=== PATIENT | female | born 1945 | race Caucasian/White ===

== ENCOUNTER 2021-07-08 07:16 | Inpatient (IN) | payer OTHER, MEDICARE ==
[2021-07-08 09:00] LABS: Urine Blood Negative (Negative); Urine Glucose Negative (Negative); Urine Protein Negative (Negative); Urine Specific Gravity 1.015 (1.005-1.030)
[2021-07-08 09:02] LABS: Absolute Lymphocytes (CBC) 0.5 K/uL (0.7-4.9); Basophils % 0.4 % (0-1.3); Hematocrit 30.3 % (36.0-45.0); MPV 6.9 fL (7.6-11.3); RBC Red Blood Cell Count 2.89 M/uL (3.86-4.86)
[2021-07-08 09:06] LABS: Protime INR 1.31
[2021-07-08 09:32] LABS: Urine RBC <5 /HPF (NONE SEEN)
[2021-07-08 09:33] LABS: Urine Bacteria <20 /HPF (<20)
[2021-07-08 09:36] LABS: ALT/SGPT 15 U/L (12-78); AST/SGOT 27 U/L (15-37); Alkaline Phosphatase 63 U/L (45-117); BUN Blood Urea Nitrogen 10 mg/dL (7-18); Bicarbonate 22 mmol/L (21-32); Bilirubin Direct 0.2 mg/dL (0-0.2); Bilirubin Total 0.5 mg/dL (0.2-1.0); Ferritin 281.1 ng/mL (8-388); Glucose Level 118 mg/dL (74-106); Lipase 19 U/L (73-393); Protein, Total 5.5 g/dL (6.4-8.2); Sodium Level 135 mmol/L (136-145); Troponin (Emerg Dept Use Only) < 0.02 ng/mL (0.0-0.045)
--- NOTE | 2021-07-08 09:49 | RAD REPORT ---
EXAM DESCRIPTION: RAD - Chest Single View - 07/08/2021 9:42 am CLINICAL HISTORY: SOB Chest pain. COMPARISON: Chest Pa And Lat (2 Views) dated 03/29/2016 FINDINGS: Portable technique limits examination quality. Moderate interstitial lung opacities are present, significantly greater on the right. This is suspici ous for infection/viral pneumonitis. The heart is normal in size. No displaced fractures.
--- NOTE | 2021-07-08 10:46 | ER ---
Nurse's Notes [facility] Name: Sangita Bunn Age: 75 yrs Sex: Female : 1945 Arrival Date: 07/08/2021 Time: 07:18 Bed 14 Private MD: Diagnosis: Pneumonia, unspecified organism;Hypoxia Presentation: 07/08 07:23 Chief complaint: Patient's son or daughter states: about 3 days ago she started with vg1 SOB, coughing. we went to [facility] for covid test. it was negative. she is an [facility] pt. 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 she had Covid in October this year and her O2 has stayed from 90% to 96%. No oxygen use at home. Coronavirus screen: At this time, the client does not indicate any symptoms associated with coronavirus-19. Ebola Screen: Patient denies travel to an Ebola-affected area in the 21 days before illness onset. Initial Sepsis Screen: Does the patient meet any 2 criteria? RR > 20 per min. HR > 90 bpm. Does the patient have a suspected source of infection? Yes: Productive cough/pneumonia. Risk Assessment: Do you want to hurt yourself or someone else? Patient reports no desire to harm self or others. Onset of symptoms was July 08, 2021. 07:23 Method Of Arrival: Wheelchair vg1 07:23 Acuity: KRISTINA 2 vg1 Triage Assessment: 07:31 General: Appears in no apparent distress. slender, well groomed, Behavior is calm, vg1 cooperative, appropriate for age. Pain: Denies pain. Respiratory: Reports shortness of breath at rest on exertion cough that is Onset: The symptoms/episode began/occurred 36 hours ago, the patient has severe shortness of breath. Historical: - Allergies: 07:27 Morphine; vg1 07:27 Codeine; vg1 - Home Meds: 07:28 levothyroxine 75 mcg tab 1 tab once daily [Active]; cabozantinib 10 mg once a day, vg1 every other day oral [Active]; Lexapro 10 mg Oral tab 1 tab once daily [Active]; sodium [Active]; tramadol 50 mg Oral tab 1 tab every 6 hours [Active]; melatonin Oral [Active]; CBD oil, 4 drops twice a day, taken orally for appetite stimulant [Active]; - PMHx: 07:27 Lung tumors; vg1 07:28 Hypothyroidism; vg1 - PSHx: 07:27 Left kidney removed; Appendectomy; vg1 - Immunization history:: Client reports having NOT received the Covid vaccine. - Social history:: Smoking status: Patient denies any tobacco usage or history of. Screenin:42 Abuse screen: Denies threats or abuse. Nutritional screening: No deficits noted. tw2 Tuberculosis screening: No symptoms or risk factors identified. Fall Risk None identified. Assessment: 07:46 General: Appears ill, slender, Behavior is calm, cooperative, appropriate for age. es2 Pain: Denies pain. Neuro: Level of Consciousness is awake, alert, obeys commands, Oriented to person, place, time, situation, Appropriate for age Speech is normal. Cardiovascular: Rhythm is sinus rhythm. Respiratory: Airway is patent Respiratory effort is even, Respiratory pattern is regular. GI: No signs and/or symptoms were reported involving the gastrointestinal system. : No signs and/or symptoms were reported regarding the genitourinary system. EENT: No signs and/or symptoms were reported regarding the EENT system. Derm: No signs and/or symptoms reported regarding the dermatologic system. Musculoskeletal: No signs and/or symptoms reported regarding the musculoskeletal system. Vital Signs: 07:23 BP 122 / 80; Pulse 103; Resp 20; Temp 97.9(TE); Weight 47.17 kg (R); Height 5 ft. 2 in. vg1 (157.48 cm); 07:23 Pulse Ox 85% on R/A; tw2 07:48 BP 137 / 72; Pulse 91; Resp 17; Pulse Ox 94% on 2 lpm NC; es2 09:56 BP 107 / 65; Pulse 84; Resp 18; Pulse Ox 92% on 2 lpm NC; es2 14:29 BP 112 / 59; Pulse 84; Resp 21; Pulse Ox 96% 3 lpm ; Pain 0/10; ch5 07:23 Body Mass Index 19.02 (47.17 kg, 157.48 cm) vg1 07:23 pt placed on 3L nc. o2 94%. provider notified. tw2 ED Course: 07:18 Patient arrived in ED. rg4 07:26 Mitchell Allen MD is Attending Physician. rn 07:27 Triage completed. vg1 07:28 Arm band placed on. vg1 07:29 Kian Stein NP is PHCP. pm1 07:31 Bed in low position. Call light in reach. Adult w/ patient. pt placed on 3L nc. tw2 07:32 Lily Hernandez, RN is Primary Nurse. es2 07:49 No provider procedures requiring assistance completed. es2 08:45 Blood Culture Sent. es2 08:45 Basic Metabolic Panel Sent. es2 08:45 BMP Sent. es2 08:45 Blood Culture Adult (2) Sent. es2 08:45 C-Reactive Protein Sent. es2 08:45 CBC with Diff Sent. es2 08:45 Ferritin Sent. es2 08:45 Flu Sent. es2 08:45 LFT's Sent. es2 08:45 Lactate Sent. es2 08:45 Lipase Sent. es2 08:45 PT-INR Sent. es2 08:45 Procalcitonin Sent. es2 08:45 Ptt, Activated Sent. es2 08:45 Strep Sent. es2 08:45 Urine Microscopic Only Sent. es2 08:45 Troponin (emerg Dept Use Only) Sent. es2 09:42 CXR XRAY In Process Unspecified. EDMS 10:45 Gil Loo MD is Hospitalizing Provider. pm1 Administered Medications: 11:02 Drug: Rocephin (cefTRIAXone) 1 grams Route: IV; Rate: calculated rate; Site: right es2 forearm; 11:02 Follow up: Response: No adverse reaction; IV Status: Completed infusion es2 11:02 Drug: AZITHromycin 500 mg Route: IVPB; Infused Over: 1 hrs; Site: right forearm; es2 12:43 Follow up: Response: No adverse reaction; IV Status: Completed infusion es2 14:01 Drug: traMADol 50 mg Route: PO; ch5 Outcome: 10:46 Decision to Hospitalize by Provider. pm1 14:49 Patient left the ED. es2 Signatures: Dispatcher [employer] EDMS Mitchell Allen MD MD rn Marinas, Patrick, ROWAN FIELD ADMINISTRATOR pm1 Tatiana Barrientos RN RN tw2 Oxana Dahl 4 Charmaine Dahl RN RN 1 John Blandon RN RN ch5 Lily Hernandez RN RN es2 Corrections: (The following items were deleted from the chart) : 08:45 CORONAVIRUS+MRJEANNEBRZ drawn and sent. es2 EDMS
--- NOTE | 2021-07-08 10:46 | EDPHYS ---
Physician Documentation [facility] Name: Sangita Bunn Age: 75 yrs Sex: Female : 1945 Arrival Date: 07/08/2021 Time: 07:18 Bed 14 Private MD: ED Physician Mitchell Allen HPI: 07/08 07:20 This 75 yrs old Female presents to ER via Wheelchair with complaints of pm1 Breathing Difficulty, Shortness Of Breath. 07:20 The patient has shortness of breath at rest. Onset: The symptoms/episode began/occurred pm1 3 day(s) ago. Duration: The symptoms are continuous, and are steadily getting worse. The patient's shortness of breath is aggravated by light activity, talking, is alleviated by application of supplemental oxygen, in the ER. Associated signs and symptoms: Pertinent positives: productive cough, Pertinent negatives: chest pain, fever, nausea, vomiting, Diarrhea. Severity of symptoms: in the emergency department the symptoms have resolved With oxygen given in the ER, patient does not use home oxygen. The patient has not experienced similar symptoms in the past. The patient has been recently seen by a physician: an oncologist, with different complaint(s). Historical: - Allergies: 07:27 Morphine; vg1 07:27 Codeine; vg1 - Home Meds: 07:28 levothyroxine 75 mcg tab 1 tab once daily [Active]; cabozantinib 10 mg once a day, vg1 every other day oral [Active]; Lexapro 10 mg Oral tab 1 tab once daily [Active]; sodium [Active]; tramadol 50 mg Oral tab 1 tab every 6 hours [Active]; melatonin Oral [Active]; CBD oil, 4 drops twice a day, taken orally for appetite stimulant [Active]; - PMHx: 07:27 Lung tumors; vg1 07:28 Hypothyroidism; vg1 - PSHx: 07:27 Left kidney removed; Appendectomy; vg1 - Immunization history:: Client reports having NOT received the Covid vaccine. - Social history:: Smoking status: Patient denies any tobacco usage or history of. ROS: 07:20 Constitutional: Negative for fever, chills, and weight loss, Cardiovascular: Negative pm1 for chest pain, palpitations, and edema. 07:20 Abdomen/GI: Negative for abdominal pain, nausea, vomiting, diarrhea, and constipation, Back: Negative for injury and pain, MS/Extremity: Negative for injury and deformity, Skin: Negative for injury, rash, and discoloration. 07:20 Neuro: Negative for headache, weakness, numbness, tingling, and seizure. 07:20 Respiratory: Positive for cough, shortness of breath. 07:20 All other systems are negative. Exam: 07:20 Constitutional: This is a well developed, well nourished patient who is awake, alert, pm1 and in no acute distress. Head/Face: Normocephalic, atraumatic. 07:20 Back: No spinal tenderness. No costovertebral tenderness. Full range of motion. Skin: Warm, dry with normal turgor. Normal color with no rashes, no lesions, and no evidence of cellulitis. MS/ Extremity: Pulses equal, no cyanosis. Neurovascular intact. Full, normal range of motion. 07:20 Cardiovascular: Exam negative for acute changes, Rate: normal, Rhythm: regular, Pulses: no pulse deficits are appreciated, Edema: is not appreciated. 07:20 Respiratory: mild respiratory distress is noted, Respirations: no acute changes, Breath sounds: decreased breath sounds, that are mild, are located in both bases. 07:20 Abdomen/GI: Exam negative for acute changes, Inspection: abdomen appears normal, Palpation: abdomen is soft and non-tender, in all quadrants. 07:20 Neuro: Exam negative for acute changes, Orientation: is normal, Motor: is normal, moves all fours. Vital Signs: 07:23 BP 122 / 80; Pulse 103; Resp 20; Temp 97.9(TE); Weight 47.17 kg (R); Height 5 ft. 2 in. vg1 (157.48 cm); 07:23 Pulse Ox 85% on R/A; tw2 07:48 BP 137 / 72; Pulse 91; Resp 17; Pulse Ox 94% on 2 lpm NC; es2 09:56 BP 107 / 65; Pulse 84; Resp 18; Pulse Ox 92% on 2 lpm NC; es2 14:29 BP 112 / 59; Pulse 84; Resp 21; Pulse Ox 96% 3 lpm ; Pain 0/10; ch5 07:23 Body Mass Index 19.02 (47.17 kg, 157.48 cm) vg1 07:23 pt placed on 3L nc. o2 94%. provider notified. tw2 MDM: 08:13 Patient medically screened. pm1 10:44 Data reviewed: vital signs. pm1 10:44 Counseling: I had a detailed discussion with the patient and/or guardian regarding: the pm1 historical points, exam findings, and any diagnostic results supporting the discharge/admit diagnosis, lab results, radiology results, the need for further work-up and treatment in the hospital. 07/08 07:45 Order name: BMP pm1 07/08 07:45 Order name: Blood Culture Adult (2) pm1 07/08 07:45 Order name: C-Reactive Protein; Complete Time: 09:49 pm1 07/08 07:45 Order name: CBC with Diff; Complete Time: 09:49 pm1 07/08 07:45 Order name: Ferritin; Complete Time: 09:49 pm1 07/08 07:45 Order name: Flu; Complete Time: 10:40 pm1 07/08 07:45 Order name: LFT's; Complete Time: 09:49 pm1 07/08 07:45 Order name: Lactate; Complete Time: 09:49 pm1 07/08 07:45 Order name: Lipase; Complete Time: 09:49 pm1 07/08 07:45 Order name: PT-INR; Complete Time: 09:49 pm1 07/08 07:45 Order name: Procalcitonin; Complete Time: 10:40 pm1 07/08 07:45 Order name: Ptt, Activated; Complete Time: 09:49 pm1 07/08 07:45 Order name: Strep; Complete Time: 09:49 pm1 07/08 07:45 Order name: Troponin (emerg Dept Use Only); Complete Time: 09:49 pm1 07/08 07:45 Order name: Urine Microscopic Only; Complete Time: 09:49 pm1 07/08 07:45 Order name: CXR XRAY; Complete Time: 09:49 pm1 07/08 07:45 Order name: EKG; Complete Time: 07:47 pm1 07/08 07:46 Order name: Basic Metabolic Panel; Complete Time: 09:49 EDMS 07/08 07:46 Order name: Blood Culture EDMS 07/08 09:00 Order name: Urine Dipstick-Ancillary; Complete Time: 09:49 EDMS 07/08 09:21 Order name: SARS-COV-2 RT PCR; Complete Time: 10:40 EDMS 07/08 09:34 Order name: Urine Culture EDMS 07/08 09:39 Order name: Throat Culture EDMS 07/08 10:47 Order name: CT Chest Wo Con pm1 07/08 11:30 Order name: Procalcitonin EDMS 07/08 12:01 Order name: CT; Complete Time: 12:08 EDMS 07/08 07:45 Order name: Cardiac monitoring; Complete Time: 08:02 pm1 07/08 07:45 Order name: Droplet/Contact Precautions; Complete Time: 08:45 pm1 07/08 07:45 Order name: EKG - Nurse/Tech; Complete Time: 08:45 pm1 07/08 07:45 Order name: IV Start; Complete Time: 08:45 pm1 07/08 07:45 Order name: Labs collected and sent; Complete Time: 08:45 pm1 07/08 07:45 Order name: O2 Per Protocol; Complete Time: 08:02 pm1 07/08 07:45 Order name: O2 Sat Monitoring; Complete Time: 08:02 pm1 07/08 07:45 Order name: Urine Dipstick-Ancillary (obtain specimen) pm1 07/08 11:30 Order name: Heart Healthy; Complete Time: 13:51 EDMS Administered Medications: 11:02 Drug: Rocephin (cefTRIAXone) 1 grams Route: IV; Rate: calculated rate; Site: right es2 forearm; 11:02 Follow up: Response: No adverse reaction; IV Status: Completed infusion es2 11:02 Drug: AZITHromycin 500 mg Route: IVPB; Infused Over: 1 hrs; Site: right forearm; es2 12:43 Follow up: Response: No adverse reaction; IV Status: Completed infusion es2 14:01 Drug: traMADol 50 mg Route: PO; ch5 Disposition: 17:55 Co-signature as Attending Physician, Mitchell Allen MD I agree with the assessment and rn plan of care. Attestation: The patient's history, exam findings, diagnostics, and a summary of any interventions or procedures was reviewed in detail with Kian Stein NP. Disposition Summary: 07/08/21 10:46 Hospitalization Ordered Hospitalization Status: Inpatient Admission pm1 Provider: Gil Loo Location: Telemetry/MedSurg (Inpatient) pm1 Condition: Stable pm1 Problem: new pm1 Symptoms: have improved pm1 Bed/Room Type: Standard pm1 Room Assignment: 202(07/08/21 13:43) Diagnosis - Pneumonia, unspecified organism pm1 - Hypoxia pm1 Forms: - Medication Reconciliation Form pm1 - SBAR form pm1 Signatures: Dispatcher [employer] EDNH Reyna Elias RN RN dw Mitchell Allen MD MD rn Marinas, Patrick, LOAN ASSISTANT LOAN ASSISTANT pm1 Charmaine Dahl RN RN 1 John Blandon RN RN ch5 Lily Hernandez RN RN es2 Corrections: (The following items were deleted from the chart) 07:46 CORONAVIRUS+BRZ ordered. [facility] EDNH 13:43 10:46 pm1 dw
[2021-07-08] MEDS ORDERED: AZITHROMYCIN 500 MG INJ IVPB ONE (11:14)
[2021-07-08] MEDS ORDERED: CEFTRIAXONE 1000 MG/VIAL ONE (11:14)
[2021-07-08] MEDS ORDERED: NA CHLORIDE 0.9% 250 ML ONE (11:14)
[2021-07-08] MEDS ORDERED: ACETAMINOPHEN 500 MG TAB PO PRN (11:27)
[2021-07-08] MEDS ORDERED: ONDANSETRON 4 MG/2 ML VIAL IV PRN (11:27)
--- NOTE | 2021-07-08 11:33 | P.HP ---
Certification for Inpatient Patient admitted to: Inpatient With expected LOS: >2 Midnights Patient will require the following post-hospital care: None Practitioner: I am a practitioner with admitting privileges, knowledge of patient current condition, hospital course, and medical plan of care. 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 Her shortness of breath started 3 days ago and she gait get a COVID-19 test which was negative. Her respiratory status continued to worse. At home her O2 sats went down to 90%. They brought her into the emergency room for further evaluation. Her oxygen saturations in the emergency room improved with 3 L of oxygen and she is feeling much better. Chest x-ray does show right lung opacity with also left lower lobe lung capacity. CT scan of the chest is pending at this time. Patient is new onset hypoxemia and will be admitted for inpatient hospitalization for bacterial pneumonia. Patient is immunocompromised with her malignancy diagnosis. - Past Medical/Surgical History -: Renal cell cancer -: Lung metastasis - Family History Father Family History: Reviewed- Non-Contributory - Social History Smoking Status: Never smoker Alcohol use: No CD- Drugs: No Review of Systems 10-point ROS is otherwise unremarkable Physical Examination - Vital Signs Temperature: 99 F Blood Pressure: 120/70 Pulse: 100 Respirations: 24 Pulse Ox (%): 90 - Physical Exam General: Alert, In no apparent distress HEENT: Atraumatic, PERRLA, Mucous membr. moist/pink, EOMI, Sclerae nonicteric Neck: Supple, 2+ carotid pulse no bruit, No LAD, Without JVD or thyroid abnormality Respiratory: Clear to auscultation bilaterally, Normal air movement Cardiovascular: Regular rate/rhythm, Normal S1 S2 Gastrointestinal: Normal bowel sounds, No tenderness Musculoskeletal: No tenderness Integumentary: No rashes Neurological: Normal gait, Normal speech, Normal strength at 5/5 x4 extr, Normal tone, Normal affect Lymphatics: No axilla or inguinal lymphadenopathy - Studies Laboratory Data (last 24 hrs) 07/08/21 08:28: PT 15.1 H, INR 1.31, APTT 30.8 07/08/21 08:28: WBC 5.60, Hgb 11.0 L, Hct 30.3 L, Plt Count 351 07/08/21 08:28: Sodium 135 L, Potassium 4.0, BUN 10, Creatinine 0.81, Glucose 118 H, Total Bilirubin 0.5, AST 27, ALT 15, Alkaline Phosphatase 63, Lipase 19 L Microbiology Data (last 24 hrs): 07/08/21 07:45 Nasopharnyx Influenza Type A Antigen Screen - Final 07/08/21 07:45 Nasopharnyx Influenza Type B Antigen Screen - Final 07/08/21 08:30 Throat Group A Streptococcus Rapid Screen - Final Assessment & Plan - Problems (Diagnosis) (1) Bacterial pneumonia Current Visit: Yes Status: Acute (2) Hypoxemia Current Visit: Yes Status: Acute (3) Metastatic renal cell carcinoma to lung Current Visit: Yes Status: Acute - Plan 1. Continue with IV antibiotics 2. Awaiting sputum and blood culture 3. Repeat chest x-ray in a.m. 4. Will proceed with CT scan of the chest 5. May get pulmonary consultation 6. Continue with nebs as needed 7. O2 per protocol 8. Continue with gentle hydration 9. Repeat labs including CBC and renal function in a.m. 10. GI and DVT prophylaxis - Advance Directives Does patient have a Living Will: No Does patient have a Durable POA for Healthcare: No
--- NOTE | 2021-07-08 12:01 | RAD REPORT ---
EXAM DESCRIPTION: CT - Thorax Wo Con CLINICAL HISTORY: Chest pain pneumonia, lung ca COMPARISON: Thorax Wo Con dated 04/30/2016 FINDINGS: Small bilateral pleural effusions are seen. Multiple soft tissue masses are present in the mediastinum compatible with metastatic lymphadenopathy. The adenopathy appears to extend superiorly to involve the base of the neck bilaterally. There is likely a right hilar mass present although full assessment is quite limited by lack contrast. Mild atelectasis is seen involving the right middle lo be. No pneumothorax. Asymmetric interstitial lung opacities are present greatest in the upper lobes particularly on the ri ght suspicious for a superimposed pulmonary infection/pneumonia. Several low-density hepatic lesions are present, likely cysts. No lytic or blastic bone lesions. All CT scans are performed using dose optimization technique as appropriate and may include automated exposure control or mA/KV adjustment according to patient size. IMPRESSION: Multiple soft tissue masses are seen in mediastinum compatible with significant adenopat hy. The adenopathy is seen to extend superiorly to the base of the neck bilaterally. Presumed right h ilar mass is present with atelectasis involving the right middle lobe.Complete assessment is limited due to lack of intravenous contrast material Airspace infiltrate is present in both upper lobes, greater on the right likely infection/pneumonia. Small bilateral pleural effusions.
[2021-07-08 12:10] VITALS: BMI 19.0
[2021-07-08] MEDS: ENOXAPARIN 40 MG/0.4 ML SQ SCH (12:30)
[2021-07-08] MEDS ORDERED: ENOXAPARIN 40 MG/0.4 ML SQ ONE (12:38)
[2021-07-08] MEDS ORDERED: NA CHLORIDE 0.9% 1,000 ML ONE (12:39)
[2021-07-08] MEDS: NA CHLORIDE 0.9% 1,000 ML IV SCH (12:42)
[2021-07-08] MEDS: ALBUTEROL 2.5 MG/3 ML NEB SOL NEB SCH ×3 (13:10→19:29)
[2021-07-08] MEDS: IPRATROPIUM BROM 0.5MG/2.5ML NEB SCH ×3 (13:10→19:29)
[2021-07-08] MEDS ORDERED: IPRATROPIUM BROM 0.5MG/2.5ML ONE (13:21)
[2021-07-08] MEDS ORDERED: ALBUTEROL 2.5 MG/3 ML NEB SOL ONE (13:21)
[2021-07-08] MEDS ORDERED: TRAMADOL HCL 50 MG TAB ONE (14:19)
[2021-07-08] MEDS ORDERED: TRAMADOL HCL 50 MG TAB PO PRN (20:00)
[2021-07-08] MEDS: ESCITALOPRAM 20 MG TAB PO SCH (20:13)
[2021-07-08] MEDS: guaiFENesin 100 MG/5 ML UCUP PO PRN (20:13)
[2021-07-08] MEDS: BENZONATATE 100 MG CAP PO PRN (23:13)
[2021-07-08] MEDS: MELATONIN 5 MG TABLET PO PRN (23:34)
[2021-07-09] MEDS: IPRATROPIUM BROM 0.5MG/2.5ML NEB SCH ×4 (02:05→20:00)
[2021-07-09] MEDS: ALBUTEROL 2.5 MG/3 ML NEB SOL NEB SCH ×4 (02:05→20:00)
[2021-07-09] MEDS: LEVOTHYROXINE SOD 0.075 MG TAB PO SCH (06:47)
[2021-07-09] MEDS: BENZONATATE 100 MG CAP PO PRN (06:49)
[2021-07-09 06:52] LABS: Absolute Lymphocytes (CBC) 0.7 K/uL (0.7-4.9); Basophils % 0.6 % (0-1.3); Hematocrit 29.4 % (36.0-45.0); MPV 6.5 fL (7.6-11.3); RBC Red Blood Cell Count 2.93 M/uL (3.86-4.86)
[2021-07-09 07:05] LABS: Albumin 1.7 g/dL (3.4-5.0); Bilirubin Total 0.4 mg/dL (0.2-1.0); Potassium 3.9 mmol/L (3.5-5.1); Protein, Total 5.1 g/dL (6.4-8.2)
[2021-07-09] MEDS: ENOXAPARIN 40 MG/0.4 ML SQ SCH (08:54)
[2021-07-09] MEDS: guaiFENesin 100 MG/5 ML UCUP PO PRN (08:54)
[2021-07-09] MEDS ORDERED: HYDROCODONE/CHLORPHEN 5 ML/OSYR PO PRN (10:35)
[2021-07-09] MEDS ORDERED: METHYLPREDNISOLONE 125 MG INJ IV ONE (11:00)
[2021-07-09] MEDS ORDERED: Levofloxacin500mg IV 500 MG/100 ML BAG IV SCH (11:00)
[2021-07-09] MEDS ORDERED: PIPER TAZO 3.375 GM in NA CHLORIDE 0.9% 100 ML IV SCH ×4 (12:00)
[2021-07-09] MEDS: PIPER TAZO 3.375 GM in NA CHLORIDE 0.9% 100 ML IV SCH (18:26)
[2021-07-09] MEDS: METHYLPREDNISOLONE 40 MG INJ IV SCH (18:29)
[2021-07-09] MEDS: ESCITALOPRAM 20 MG TAB PO SCH ×2 (20:48→21:00)
[2021-07-09] MEDS: NA CHLORIDE 0.9% 1,000 ML IV SCH (20:48)
[2021-07-10] MEDS: METHYLPREDNISOLONE 40 MG INJ IV SCH (01:00)
[2021-07-10] MEDS: PIPER TAZO 3.375 GM in NA CHLORIDE 0.9% 100 ML IV SCH (01:09)
--- NOTE | 2021-07-10 01:41 | P.PN ---
Subjective Date of Service: 07/09/21 Patient's clinical symptoms are improved. Patient is not coughing as much. Procalcitonin was negative. Most likely viral pneumonia. Continue with IV steroids. Pulmonary consultation in a.m. along with repeat chest x-ray Review of Systems 10-point ROS is otherwise unremarkable Physical Examination - Vital Signs Temperature: 99 F Blood Pressure: 120/70 Pulse: 100 Respirations: 24 Pulse Ox (%): 90 - Physical Exam General: Alert, In no apparent distress, Oriented x3 Respiratory: Diminished, Crackles/rales, Expiratory wheezes Cardiovascular: Regular rate/rhythm, Normal S1 S2, No murmurs Gastrointestinal: Normal bowel sounds, Soft and benign, Non-distended, No tenderness Musculoskeletal: No clubbing, No swelling, No tenderness Neurological: Normal strength at 5/5 x4 extr, Sensation intact, Cranial nerves 3-12 intact - Studies Medications List Reviewed: Yes Assessment & Plan - Problems (Diagnosis) (1) Bacterial pneumonia Current Visit: Yes Status: Acute (2) Hypoxemia Current Visit: Yes Status: Acute (3) Metastatic renal cell carcinoma to lung Current Visit: Yes Status: Acute - Plan Continue with plan of care as mentioned below: 1. Continue with IV antibiotics and IV steroids 2. Awaiting culture results 3. Repeat chest x-ray in a.m. 4. CT scan reveals bilateral upper lobe infiltrates 5. May get pulmonary consultation 6. Continue with nebs as needed 7. O2 per protocol 8. Hep-Lock IV 9. Repeat labs including CBC and renal function in a.m. 10. GI and DVT prophylaxis Discharge Plan: Home Plan to discharge in: Greater than 2 days - Advance Directives Does patient have a Living Will: No Does patient have a Durable POA for Healthcare: No - Code Status/Comfort Care Code Status Assessed: Yes Code Status: Full Code Critical Care: No Time Spent Managing PTS Care (In Minutes): 35
[2021-07-10] MEDS: IPRATROPIUM BROM 0.5MG/2.5ML NEB SCH ×4 (02:00→20:00)
[2021-07-10] MEDS: ALBUTEROL 2.5 MG/3 ML NEB SOL NEB SCH ×2 (02:00→08:12)
[2021-07-10] MEDS: LEVOTHYROXINE SOD 0.075 MG TAB PO SCH (05:15)
[2021-07-10] MEDS ORDERED: LEVOTHYROXINE SOD 0.075 MG TAB PO SCH (06:30)
[2021-07-10 06:36] LABS: Absolute Lymphocytes (CBC) 0.1 K/uL (0.7-4.9); Basophils % 0.2 % (0-1.3); Hematocrit 30.8 % (36.0-45.0); Lymphocytes % 2.5 % (15.3-44.8); MPV 6.6 fL (7.6-11.3); RBC Red Blood Cell Count 2.91 M/uL (3.86-4.86)
[2021-07-10 06:52] LABS: Magnesium 2.2 mg/dL (1.8-2.4); Potassium 3.7 mmol/L (3.5-5.1)
--- NOTE | 2021-07-10 07:25 | RAD REPORT ---
EXAM DESCRIPTION: RAD - Chest Single View - 07/10/2021 7:02 am CLINICAL HISTORY: pneumonia COMPARISON: CT chest July 08, AP chest July 08 TECHNIQUE: AP portable chest image was obtained 07/10/2021 7:02 am . FINDINGS: Prominent interstitial pattern throughout both lung hu. Additional airspace opacities are seen in the upper right lobe matching the prior study. Right middle lobe atelectasis again noted. Mediastinum is unchanged from the portable chest examination. Heart and vasculature are normal. No measurable pleural effusion and no pneumothorax. No acute bony abnormality seen. No acute aortic findings suspected. IMPRESSION: Stable chest.
--- NOTE | 2021-07-10 08:24 | P.CNS ---
Date of Consult: 07/10/21 Reason for Consult: Shortness of breath abnormal chest x-ray History of Present Illness: Patient is 75 years patient is 75 years of age with a history of renal cancer with mets to the lungs he has mediastinal adenopathy came into the hospital became acutely short of breath daughter present at the bedside she is a poor historian apparently has had her decrease she is doing fine much better since he had chemotherapy Allergies codeine Adverse Reaction (Verified 07/08/21 12:08) Hives morphine Adverse Reaction (Verified 07/08/21 12:08) Shortness of breath Home Medications: Cabozantinib S-Malate [Cabometyx] 40 mg PO DAILY 07/08/21 Escitalopram Oxalate [Lexapro] 10 mg PO DAILY 07/08/21 Levothyroxine Sodium [Levothyroxine] 75 mcg PO DAILY 07/08/21 Sodium Chloride Tab [Sodium Chloride*] 1 gm PO BID 07/08/21 Tramadol HCl [Ultram] 50 mg PO Q6HR PRN 07/08/21 - Past Medical/Surgical History -: Renal cell cancer -: Lung metastasis - Family History Father Family History: Reviewed- Non-Contributory - Social History Alcohol use: No CD- Drugs: No Review of Systems 10-point ROS is otherwise unremarkable Respiratory: Shortness of Breath Physical Examination Temp Pulse Resp BP Pulse Ox 97.3 F 86 18 123/78 90 L 07/10/21 04:00 07/10/21 04:00 07/10/21 04:00 07/10/21 04:00 07/10/21 04:00 General: Alert, In no apparent distress, Oriented x3 Neck: Supple Respiratory: Clear to auscultation bilaterally Cardiovascular: No edema, Regular rate/rhythm - Problems (1) Shortness of breath Current Visit: Yes Status: Acute Plan: Patient is 75-year abnormal CT scan assessing groundglass appearance on the right side with some atelectasis also has mediastinal adenopathy she is undergoing chemotherapy doing much better patient also has small bilateral pleural effusions need to rule out a pulmonary embolism ordered a CT scan with contrast patient is not allergic verified by her daughter vital signs stable address change clerk to p.o. prednisone possible discharge today after CT pulmonary angiogram Continue with continue with low-dose prednisone follow-up at [facility] doubt sepsis doubt sepsis may have underlying diastolic dysfunction consider also added consider adding low-dose spironolactone
[2021-07-10] MEDS ORDERED: ESCITALOPRAM 20 MG TAB PO SCH (09:00)
[2021-07-10] MEDS: Cabozantinib S-Malate [Cabometyx] 40 MG Tablet PO SCH (09:00)
[2021-07-10] MEDS: guaiFENesin 100 MG/5 ML UCUP PO PRN (09:41)
[2021-07-10] MEDS: FUROSEMIDE 20 MG/ 2ML VIAL IV SCH (09:42)
[2021-07-10] MEDS: levoFLOXacin 250 MG TAB PO SCH (09:43)
[2021-07-10] MEDS: SODIUM CHLORIDE 1 GM TAB PO SCH ×2 (09:43→20:42)
[2021-07-10] MEDS: predniSONE 20 MG TAB PO SCH ×3 (09:45→20:46)
[2021-07-10] MEDS: ENOXAPARIN 30 MG/0.3 ML SQ SCH (09:50)
[2021-07-10 10:17] LABS: White Blood Cell Scan OK (OK)
[2021-07-10 10:18] LABS: Anisocytosis 1+; Blood Morphology Comment NOTED (NOT SEEN); Macrocytosis 1+; Platelet Estimate ADEQ
[2021-07-10] MEDS ORDERED: LOPERAMIDE HCL 2 MG CAPSULE PO PRN (12:07)
[2021-07-10] MEDS: LOPERAMIDE HCL 2 MG CAPSULE PO PRN (13:42)
--- NOTE | 2021-07-10 14:05 | P.PN ---
Subjective Date of Service: 07/10/21 Primary Care Provider: Dr. Correa; [facility] Chief Complaint: Shortness of breath Subjective: Improving Physical Examination - Vital Signs Temperature: 97.6 F Blood Pressure: 158/76 Pulse: 85 Respirations: 20 Pulse Ox (%): 97 - Studies Microbiology Data (last 24 hrs): 07/08/21 08:30 Throat Culture & Sensitivity - Final NORMAL UPPER RESPIRATORY CHERYL GROWN. 07/08/21 08:56 Clean Catch Urine [place] Count - Final BETWEEN 10,000 & 100,000 CFU/ML 07/08/21 08:56 Clean Catch Urine - Final MIXED CHERYL. Medications List Reviewed: Yes Assessment & Plan Discharge Plan: Home Plan to discharge in: 24 Hours Physician Review Additional Text: COVID: Negative CT Chest: COMPARISON: Thorax Wo Con dated 04/30/2016 FINDINGS: Small bilateral pleural effusions are seen. Multiple soft tissue masses are present in the mediastinum compatible with metastatic lymphadenopathy. The adenopathy appears to extend superiorly to involve the base of the neck bilaterally. There is likely a right hilar mass present although full assessment is quite limited by lack contrast. Mild atelectasis is seen involving the right middle lobe. No pneumothorax. Asymmetric interstitial lung opacities are present greatest in the upper lobes particularly on the right suspicious for a superimposed pulmonary infection/pneumonia. Several low-density hepatic lesions are present, likely cysts. No lytic or blastic bone lesions. All CT scans are performed using dose optimization technique as appropriate and may include automated exposure control or mA/KV adjustment according to patient size. IMPRESSION: Multiple soft tissue masses are seen in mediastinum compatible with significant adenopathy. The adenopathy is seen to extend superiorly to the base of the neck bilaterally. Presumed right hilar mass is present with atelectasis involving the right middle lobe.Complete assessment is limited due to lack of intravenous contrast material Airspace infiltrate is present in both upper lobes, greater on the right likely infection/pneumonia. Small bilateral pleural effusions. CT Chest Angiogram: Pending Follow up CXR: COMPARISON: CT chest July 08, AP chest July 08 TECHNIQUE: AP portable chest image was obtained 07/10/2021 7:02 am . FINDINGS: Prominent interstitial pattern throughout both lung hu. Additional airspace opacities are seen in the upper right lobe matching the prior study. Right middle lobe atelectasis again noted. Mediastinum is unchanged from the portable chest examination. Heart and vasculature are normal. No measurable pleural effusion and no pneumothorax. No acute bony abnormality seen. No acute aortic findings suspected. IMPRESSION: Stable chest. Physical Exam: GENERAL: The patient is a well-developed, well-nourished, in no apparent distress. Alert and oriented x3. VITAL SIGNS: Reviewed HEENT: Neck supple LUNGS: Decreased at the bases. HEART: Regular rate and rhythm, no appreciable gallops, rubs, murmurs or extra heart sounds ABDOMEN: Soft, nontender, and nondistended. Positive bowel sounds. No hepatosplenomegaly was noted. EXTREMITIES: Without any cyanosis, clubbing, rash, lesions or peripheral edema. NEUROLOGIC: The patient is oriented to person, place and time. Strength and sensation are grossly intact. Face is symmetric. SKIN: Normal color, turgor and temperature. No ulcerations or rashes noted. 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 Pulmonology suspects possible acute on chronic diastolic CHF versus pneumonia. Patient to receive IV Lasix x1. Antibiotics adjusted to Levaquin. Pulmonology changed IV Solu-Medrol to oral prednisone. Pulmonology recommends CT scan of the chest/angiogram to evaluate for pulmonary emboli. Continue DVT prophylaxis. Continue to monitor improvement. Anticipate likely discharge tomorrow. Renal cell carcinoma with metastasis to the lung on chemotherapy: Continue with chemotherapy medication. Patient follows up at [facility]. Possible acute on chronic diastolic CHF: Patient to get IV Lasix. Depression with anxiety: Continue Zoloft Hypothyroidism: Continue levothyroxine Code Status: Full Code DVT prophylaxis: Lovenox Advanced Care Planning-30 minutes: Home at discharge Time Spent Managing Pts Care (In Minutes): 55
--- NOTE | 2021-07-10 14:41 | RAD REPORT ---
EXAM DESCRIPTION: CT - Chest For Pe Angio - 07/10/2021 2:18 pm CLINICAL HISTORY: Chest pain COMPARISON: July 08, 2021 cat scan TECHNIQUE: Dynamically enhanced axial 3 mm thick images of the chest were obtained during administra tion of <100> mL Isovue 370 IV contrast. Coronal and oblique reconstruction images were generated and reviewed. Exam utilizes a protocol for optimal evaluation of pulmonary arterial tree. Maximum intensity projections 3D imaging was utilized All CT scans are performed using dose optimization technique as appropriate and may include automated exposure control or mA/KV adjustment according to patient size. FINDINGS: A pulmonary embolus is not seen. A thoracic aortic aneurysm is not noted. Marked mediastinal and hilar lymphadenopathy. Lymphadenopathy lower neck. Soft tissue occludes right middle lobe bronchus resulting in atelectasis. Several tiny lung nodules. Bilateral ground-glass opacities Moderate right and small to moderate left pleural effusions. Hepatic lesions are incompletely evaluated on this exam. CT abdomen of 2016 demonstrated several of t hese lesions to be present which indicate that most if not all represent cysts IMPRESSION: Negative for a pulmonary embolism. Marked mediastinal and hilar lymphadenopathy likely neoplastic. Soft tissue occludes right middle lobe bronchus resulting atelectasis Moderate right and small to moderate left pleural effusions Several small pulmonary nodules Bilateral ground-glass opacities indicative of alveolitis
[2021-07-10] MEDS: TRAMADOL HCL 50 MG TAB PO PRN (20:47)
[2021-07-10] MEDS: ESCITALOPRAM 20 MG TAB PO SCH (21:00)
[2021-07-10] MEDS: MELATONIN 5 MG TABLET PO PRN (21:21)
[2021-07-11] MEDS: IPRATROPIUM BROM 0.5MG/2.5ML NEB SCH ×2 (02:00→08:00)
[2021-07-11] MEDS: LEVOTHYROXINE SOD 0.075 MG TAB PO SCH (05:47)
--- NOTE | 2021-07-11 05:53 | P.DS ---
Admission Date: 07/08/21 Discharge Date: 07/11/21 Primary Care Provider: Dr. Correa; [facility] Disposition: ROUTINE DISCHARGE Discharge Condition: GOOD Reason for Admission: Shortness of breath Consultations: Pulmonary-Dr. Moore Procedures: COVID: Negative CT Chest: COMPARISON: Thorax Wo Con dated 04/30/2016 FINDINGS: Small bilateral pleural effusions are seen. Multiple soft tissue masses are present in the mediastinum compatible with metastatic lymphadenopathy. The adenopathy appears to extend superiorly to involve the base of the neck bilaterally. There is likely a right hilar mass present although full assessment is quite limited by lack contrast. Mild atelectasis is seen involving the right middle lobe. No pneumothorax. Asymmetric interstitial lung opacities are present greatest in the upper lobes particularly on the right suspicious for a superimposed pulmonary infection/pneumonia. Several low-density hepatic lesions are present, likely cysts. No lytic or blastic bone lesions. All CT scans are performed using dose optimization technique as appropriate and may include automated exposure control or mA/KV adjustment according to patient size. IMPRESSION: Multiple soft tissue masses are seen in mediastinum compatible with significant adenopathy. The adenopathy is seen to extend superiorly to the base of the neck bilaterally. Presumed right hilar mass is present with atelectasis involving the right middle lobe.Complete assessment is limited due to lack of intravenous contrast material Airspace infiltrate is present in both upper lobes, greater on the right likely infection/pneumonia. Small bilateral pleural effusions. CT Chest Angiogram: COMPARISON: July 08, 2021 cat scan TECHNIQUE: Dynamically enhanced axial 3 mm thick images of the chest were obtained during administration of <100> mL Isovue 370 IV contrast. Coronal and o blique reconstruction images were generated and reviewed. Exam utilizes a protocol for optimal evaluation of pulmonary arterial tree. Maximum intensity projections 3D imaging was utilized All CT scans are performed using dose optimization technique as appropriate and may include automated exposure control or mA/KV adjustment according to patient size. FINDINGS: A pulmonary embolus is not seen. A thoracic aortic aneurysm is not noted. Marked mediastinal and hilar lymphadenopathy. Lymphadenopathy lower neck. Soft tissue occludes right middle lobe bronchus resulting in atelectasis. Several tiny lung nodules. Bilateral ground-glass opacities Moderate right and small to moderate left pleural effusions. Hepatic lesions are incompletely evaluated on this exam. CT abdomen of 2016 demonstrated several of these lesions to be present which indicate that most if not all represent cysts IMPRESSION: Negative for a pulmonary embolism. Marked mediastinal and hilar lymphadenopathy likely neoplastic. Soft tissue occludes right middle lobe bronchus resulting atelectasis Moderate right and small to moderate left pleural effusions Several small pulmonary nodules Bilateral ground-glass opacities indicative of alveolitis Follow up CXR: COMPARISON: CT chest July 08, AP chest July 08 TECHNIQUE: AP portable chest image was obtained 07/10/2021 7:02 am . FINDINGS: Prominent interstitial pattern throughout both lung hu. Additional airspace opacities are seen in the upper right lobe matching the prior study. Right middle lobe atelectasis again noted. Mediastinum is unchanged from the portable chest examination. Heart and vasculature are normal. No measurable pleural effusion and no pneumothorax. No acute bony abnormality seen. No acute aortic findings suspected. IMPRESSION: Stable chest. Medical problem list: Dyspnea secondary to bilateral pneumonia complicated with small bilateral pleural effusions and multiple pulmonary nodules/marked mediastinal-hilar lymphadenopathy likely metastatic with bilateral alveolitis Renal cell carcinoma with metastasis to the lung on chemotherapy Possible acute on chronic diastolic CHF Depression with anxiety Hypothyroidism Brief History of Present Illness: History of Present Illness: Patient is a 75-year-old female with a history of renal cell carcinoma with metastasis to the lungs who came into the hospital with shortness of breath. Her shortness of breath started 3 days ago and she gait get a COVID-19 test which was negative. Her respiratory status continued to worse. At home her O2 sats went down to 90%. They brought her into the emergency room for further evaluation. Her oxygen saturations in the emergency room improved with 3 L of oxygen and she is feeling much better. Chest x-ray does show right lung opacity with also left lower lobe lung capacity. CT scan of the chest is pending at this time. Patient is new onset hypoxemia and will be admitted for inpatient hospitalization for bacterial pneumonia. Patient is immunocompromised with her malignancy diagnosis. Hospital Course: Patient presented with dyspnea secondary to bilateral pneumonia. CT scan obtained showed small bilateral pleural effusions with multiple pulmonary nodules, marked mediastinalhilar lymphadenopathy likely metastatic with bilateral alveolitis. Pulmonary embolism was not identified. Patient was given treatment with IV antibiotic therapy, IV steroids and Lasix. Her condition imp roved. Patient was seen and evaluated by pulmonology. At discharge patient without significant shortness of breath. Patient back to baseline. Patient not requiring any oxygen. At discharge the patient will continue with Levaquin 250 mg 1 pill daily for 5 days. The patient will also continue with prednisone 20 mg 1 pill daily for 5 days. The patient will also continue with Lasix 20 mg daily. Further adjustment in Lasix can be done by pulmonology as this medication may be able to be weaned off. Recommend follow-up with pulmonology in 1 week to follow-up his hospitalization. Recommend to recheck chest x-ray in 2 to 4 weeks to monitor resolution. Patient with renal cell carcinoma with metastasis to the lung. Patient may continue with her current oral chemotherapy-Cabometyx 40 mg daily. Recommend follow-up at [facility] to further address. As mentioned above suspect underlying acute on chronic diastolic CHF. She responded well to Lasix. Patient with bilateral pleural effusions as well. Patient on room air at discharge. Patient will continue with Lasix 20 mg daily. Patient may continue with a 1500 cc/day fluid restriction and low-salt diet. Lasix may be able to be weaned off if her oral intake is monitor closely. This can be done with the help of pulmonology. Recommend follow-up with pulmonology within 1 week to follow-up hospitalization. Patient with depression with anxiety. At discharge patient will continue with Lexapro 10 mg daily Patient with hypothyroidism. At discharge she will continue with levothyroxine 75 mcg daily. Patient also takes tramadol 50 mg 3 times a day as needed for pain. Patient may continue with his medication. Patient may also continue with sodium chloride 1 g twice daily. Recommend to recheck labBMP in 1 week to monitor her progress. Further adjustment can be done by her PCP. Vital Signs/Physical Exam: Temp Pulse Resp BP Pulse Ox 97.7 F 79 18 126/65 93 07/11/21 04:00 07/11/21 04:00 07/11/21 04:00 07/11/21 04:00 07/11/21 04:00 General: Alert, In no apparent distress, Oriented x3, Cooperative HEENT: Atraumatic Neck: Supple Respiratory: Clear to auscultation bilaterally, Normal air movement Cardiovascular: Normal pulses, Regular rate/rhythm Gastrointestinal: Normal bowel sounds, No ascites, No tenderness, No masses, No rebound, No guarding Musculoskeletal: No erythema, No tenderness, No warmth Integumentary: No tenderness/swelling Neurological: Normal speech, Normal strength at 5/5 x4 extr, Normal tone Laboratory Data at Discharge: WBC 4.30 K/uL (4.3-10.9) 07/10/21 06:11 Hgb 10.9 g/dL (12.0-15.0) L 07/10/21 06:11 Hct 30.8 % (36.0-45.0) L 07/10/21 06:11 Plt Count 332 K/uL (152-406) 07/10/21 06:11 PT 15.1 SECONDS (9.5-12.5) H 07/08/21 08:28 INR 1.31 07/08/21 08:28 APTT 30.8 SECONDS (24.3-36.9) 07/08/21 08:28 Sodium 141 mmol/L (136-145) 07/10/21 06:11 Potassium 3.7 mmol/L (3.5-5.1) 07/10/21 06:11 BUN 12 mg/dL (7-18) 07/10/21 06:11 Creatinine 0.93 mg/dL (0.55-1.3) 07/10/21 06:11 Glucose 197 mg/dL (74-106) H 07/10/21 06:11 Phosphorus 3.0 mg/dL (2.5-4.9) 07/09/21 06:34 Magnesium 2.2 mg/dL (1.8-2.4) 07/10/21 06:11 Total Bilirubin 0.4 mg/dL (0.2-1.0) 07/09/21 06:34 AST 23 U/L (15-37) 07/09/21 06:34 ALT 12 U/L (12-78) 07/09/21 06:34 Alkaline Phosphatase 67 U/L (45-117) 07/09/21 06:34 Triglycerides 89 mg/dL (<150) 07/09/21 06:34 Cholesterol 135 mg/dL (<200) 07/09/21 06:34 HDL Cholesterol 37 mg/dL (40-60) L 07/09/21 06:34 Cholesterol/HDL Ratio 3.65 07/09/21 06:34 Lipase 19 U/L (73-393) L 07/08/21 08:28 Home Medications: Cabozantinib S-Malate [Cabometyx] 40 mg PO DAILY 07/08/21 Escitalopram Oxalate [Lexapro] 10 mg PO DAILY 07/08/21 Levothyroxine Sodium [Levothyroxine] 75 mcg PO DAILY 07/08/21 Sodium Chloride Tab [Sodium Chloride*] 1 gm PO BID 07/08/21 Tramadol HCl [Ultram] 50 mg PO Q6HR PRN 07/08/21 Furosemide [Lasix] 20 mg PO DAILY #15 tablet 07/11/21 levoFLOXacin [Levaquin*] 250 mg PO DAILY #5 tab 07/11/21 predniSONE [Prednisone*] 20 mg PO DAILY #5 tab 07/11/21 New Medications: Furosemide [Lasix] 20 mg PO DAILY #15 tablet levoFLOXacin [Levaquin*] 250 mg PO DAILY #5 tab predniSONE [Prednisone*] 20 mg PO DAILY #5 tab Physician Discharge Instructions: Patient presented with dyspnea secondary to bilateral pneumonia. CT scan obtained showed small bilateral pleural effusions with multiple pulmonary nodules, marked mediastinalhilar lymphadenopathy likely metastatic with bilateral alveolitis. Pulmonary embolism was not identified. Patient was given treatment with IV antibiotic therapy, IV steroids and Lasix. Her condition improved. Patient was seen and evaluated by pulmonology. At discharge patient without significant shortness of breath. Patient back to baseline. Patient not requiring any oxygen. At discharge the patient will continue with Levaquin 250 mg 1 pill daily for 5 days. The patient will also continue with prednisone 20 mg 1 pill daily for 5 days. The patient will also continue with Lasix 20 mg daily. Further adjustment in Lasix can be done by pulmonology as this medication may be able to be weaned off. Recommend follow-up with pulmonology in 1 week to follow-up his hospitalization. Recommend to recheck chest x-ray in 2 to 4 weeks to monitor resolution. Patient with renal cell carcinoma with metastasis to the lung. Patient may continue with her current oral chemotherapy-Cabometyx 40 mg daily. Recommend follow-up at [facility] to further address. As mentioned above suspect underlying acute on chronic diastolic CHF. She responded well to Lasix. Patient with bilateral pleural effusions as well. Patient on room air at discharge. Patient will continue with Lasix 20 mg daily. Patient may continue with a 1500 cc/day fluid restriction and low-salt diet. Lasix may be able to be weaned off if her oral intake is monitor closely. This can be done with the help of pulmonology. Recommend follow-up with pulmonology within 1 week to follow-up hospitalization. Patient with depression with anxiety. At discharge patient will continue with Lexapro 10 mg daily Patient with hypothyroidism. At discharge she will continue with levothyroxine 75 mcg daily. Patient also takes tramadol 50 mg 3 times a day as needed for pain. Patient may continue with his medication. Patient may also continue with sodium chloride 1 g twice daily. Recommend to recheck labBMP in 1 week to monitor her progress. Further adjustment can be done by her PCP. Diet: AHA Activity: Ad geraldine Followup: NONE,NONE [Primary Care Provider] - Time spent managing pt's care (in minutes): 55
[2021-07-11] MEDS: FUROSEMIDE 20 MG/ 2ML VIAL IV SCH (08:39)
[2021-07-11] MEDS: levoFLOXacin 250 MG TAB PO SCH (08:40)
[2021-07-11] MEDS: TRAMADOL HCL 50 MG TAB PO PRN (08:40)
[2021-07-11] MEDS: SODIUM CHLORIDE 1 GM TAB PO SCH (08:40)
[2021-07-11] MEDS: Cabozantinib S-Malate [Cabometyx] 40 MG Tablet PO SCH (08:41)
[2021-07-11] MEDS: ENOXAPARIN 30 MG/0.3 ML SQ SCH (08:49)
[2021-07-11] MEDS ORDERED: POTASSIUM CL SA 10 MEQ TAB PO ONE ×2 (09:00)
[2021-07-11] MEDS ORDERED: predniSONE 20 MG TAB PO SCH (09:00)
[2021-07-11] MEDS: LOPERAMIDE HCL 2 MG CAPSULE PO PRN (10:34)
[2021-07-11 13:16] VITALS: O2SAT 83
[2021-07-11 16:30] VITALS: BP 110/66; TEMP 98.6
--- NOTE | 2021-07-11 17:26 | RAD REPORT ---
EXAM DESCRIPTION: RAD - Chest Single View - 07/11/2021 11:45 am CLINICAL HISTORY: Follow up SOB Chest pain. COMPARISON: Chest Single View dated 07/10/2021; Chest Single View dated 07/08/2021; Chest Pa And Lat (2 Views) dated 03/29/2016 FINDINGS: Portable technique limits examination quality. Right hilar and peritracheal stripe fullness is again seen, unchanged. Bilateral pulmonary opacities have mildly improved particularly in the right upper lobe since yesterday's study. The heart is hollis l in size. No displaced fractures. IMPRESSION: Mild improvement is seen in the right upper lobe pneumonia pattern since yesterday's linden dy.
== END 2021-07-11 12:43 | disposition home or self-care (01) | DRG 193 ==
LOC: ER 07:16 → ERHOLD 11:27 → 2ND 14:39
PROVIDERS: ADMIT Hospitalist; ATTEND Hospitalist
DX: J12.9 Viral pneumonia, unspecified (principal); I50.33 Acute on chronic diastolic (congestive) heart failure; C64.9 Malignant neoplasm of unspecified kidney, except renal pelvis; C78.00 Secondary malignant neoplasm of unspecified lung; C77.1 Secondary and unspecified malignant neoplasm of intrathoracic lymph nodes; J98.11 Atelectasis; R09.02 Hypoxemia; F41.8 Other specified anxiety disorders; E03.9 Hypothyroidism, unspecified; Z20.822 Contact with and (suspected) exposure to COVID-19
CPT/HCPCS: 36415; 71045; 71250; 71275; 80048; 80053; 80061; 80076; 81003; 81015; 82728; 83605; 83690; 83735; 83880; 84100; 84145; 84484; 85025; 85610; 85730; 86140; 87040; 87070; 87081; 87086; 87088; 87804; 93005; 94010; 94640; 94760; 96365; 96366; 96375; 99284; J0456; J1650; J1940; J2405; J2543; J2920; J2930; J7030; J7050; J7512; Q9967; U0003

== ENCOUNTER 2021-07-27 13:34 | Observation (INO) | payer OTHER, MEDICARE ==
[2021-07-27 14:59] LABS: Absolute Lymphocytes (CBC) 0.7 K/uL (0.7-4.9); Basophils % 0.4 % (0-1.3); Lymphocytes % 12.5 % (15.3-44.8); MPV 6.4 fL (7.6-11.3); RBC Red Blood Cell Count 3.18 M/uL (3.86-4.86)
[2021-07-27 15:09] LABS: Protime INR 1.09
[2021-07-27 15:24] LABS: ALT/SGPT 16 U/L (12-78); AST/SGOT 29 U/L (15-37); Albumin 2.1 g/dL (3.4-5.0); Alkaline Phosphatase 59 U/L (45-117); BUN Blood Urea Nitrogen 23 mg/dL (7-18); Bicarbonate 29 mmol/L (21-32); Bilirubin Direct < 0.1 mg/dL (0-0.2); Bilirubin Total 0.3 mg/dL (0.2-1.0); Glucose Level 102 mg/dL (74-106); NT PRO-BNP 871 pg/mL (<125); Potassium 4.2 mmol/L (3.5-5.1); Protein, Total 5.9 g/dL (6.4-8.2); Sodium Level 136 mmol/L (136-145); Troponin (Emerg Dept Use Only) < 0.02 ng/mL (0.0-0.045)
--- NOTE | 2021-07-27 15:48 | RAD REPORT ---
EXAM DESCRIPTION: CT - Chest For Pe Angio - 07/27/2021 3:07 pm CLINICAL HISTORY: metastatic RCC to lungs, hypoxic, eval for PE COMPARISON: Chest For Pe Angio dated 07/10/2021; Thorax Wo Con dated 07/08/2021; Thorax Wo Con dated 04/30/2016 FINDINGS: Chest Wall: Supraclavicular lymphadenopathy is noted but partially imaged. Lungs: Interlobular septal thickening and scattered ground-glass opacities. Consolidative dependent a irspace disease. The right middle lobe bronchus is occluded. This resultant atelectasis of the right middle lobe. Pleura: Small moderate right and small left pleural effusion. Mediastinum/greg: Bulky mediastinal and hilar lymphadenopathy. For example, a prevascular lymph node measures 14 millimeters. Pulmonary arteries/Aorta: No filling defect identified. No aortic aneurysm. Heart: No significant pericardial effusion. Normal heart size. Upper abdomen: Incompletely characterize low-density liver lesions. Left nephrectomy. There are multi ple hypervascular appearing upper abdominal and retroperitoneal lymph nodes. Bones: No acute abnormality. All CT scans are performed using dose optimization technique as appropriate and may include automated exposure control or mA/KV adjustment according to patient size. IMPRESSION: Negative for pulmonary embolism. Increasing bilateral interlobular septal thickening whi ch may reflect lymphangitic spread of tumor. Again noted are bilateral pleural effusions and collapse of the right middle lobe due to right middle lobe bronchus occlusion. There also irregular bilateral airspace opacities that may reflect a combination of pneumonia or pneumonitis. Mediastinal, hilar, and upper abdominal lymphadenopathy consistent with metastatic disease, possibly metastatic renal cell carcinoma.
--- NOTE | 2021-07-27 15:50 | RAD REPORT ---
EXAM DESCRIPTION: RAD - Chest Single View - 07/27/2021 3:34 pm CLINICAL HISTORY: DYSPNEA COMPARISON: Chest Single View dated 07/11/2021; Chest Single View dated 07/10/2021; Chest Single Vie w dated 07/08/2021; Chest Pa And Lat (2 Views) dated 03/29/2016; Chest For Pe Angio dated 07/27/2021 FINDINGS: Lines: None. Lungs: Patchy multifocal airspace disease bilaterally. Pleural: No significant pleural effusions or pneumothorax. Cardiac: The heart size is within normal limits. Bones: No acute fractures. Other: IMPRESSION: Widespread bilateral airspace disease. Reference preceding chest CT.
--- NOTE | 2021-07-27 16:51 | EDPHYS ---
Physician Documentation [facility] Name: Sangita Bunn Age: 75 yrs Sex: Female : 1945 Arrival Date: 07/27/2021 Time: 13:37 Bed 19 Private MD: ED Physician Mitchell Allen HPI: 07/27 16:43 This 75 yrs old Female presents to ER via Wheelchair with complaints of Low rn O2. 16:43 The patient has shortness of breath at rest, with light activity. Onset: The rn symptoms/episode began/occurred at an unknown time. Duration: The symptoms are continuous. The patient's shortness of breath is aggravated by exertion, light activity, is alleviated by application of supplemental oxygen. Associated signs and symptoms: Pertinent positives: non-productive cough, Pertinent negatives: fever, hemoptysis, loss of consciousness. Severity of symptoms: At their worst the symptoms were moderate in the emergency department the symptoms are unchanged. The patient has experienced similar episodes in the past. The patient has been recently seen by a physician:. Patient reports low oxygen, goes down to about 78%, not on home O2. 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 Recently taken off diuretic. Is supposed to start new chemotherapy and immunotherapy with Dr. Lewis. Today daughter called Dr. Moore and was told to come to the ER and that we can prescribe oxygen. Daughter states in the last few days low oxygenation, but does not have oxygen at home. Denies any trauma. Daughter makes it seem like this is a new problem.. Historical: - Allergies: 14:16 Morphine; jd3 14:16 Codeine; jd3 14:16 Cortisone; jd3 - PMHx: 14:16 Hypothyroidism; Lung tumors; jd3 14:16 Hypothyroidism; Lung tumors; sl2 - PSHx: 14:16 Appendectomy; Left kidney removed; jd3 14:16 Appendectomy; Left kidney removed; sl2 - Immunization history:: Adult Immunizations up to date, Client reports having NOT received the Covid vaccine. Flu vaccine is not up to date. Adult Immunizations up to date, Client reports receiving the 2nd dose of the Covid vaccine. - Social history:: Smoking status: Patient denies any tobacco usage or history of. Smoking status: Patient denies any tobacco usage or history of. - Family history:: not pertinent. - Hospitalizations: : No recent hospitalization is reported. ROS: 16:43 Constitutional: Negative for fever, chills Eyes: Negative for injury, pain, redness, rn and discharge, ENT: Negative for injury, pain, and discharge, Neck: Negative for injury, pain, and swelling, Cardiovascular: Negative for chest pain, palpitations, and edema, Respiratory: Positive for shortness of breath and cough Abdomen/GI: Negative for abdominal pain, nausea, vomiting, diarrhea, and constipation, Back: Negative for injury and pain, MS/Extremity: Negative for injury and deformity, Skin: Negative for injury, rash, and discoloration, Neuro: Negative for headache, numbness, tingling, and seizure. Exam: 16:43 Constitutional: Thin female no acute distress Head/Face: Normocephalic, atraumatic. rn Eyes: Periorbital areas with no swelling, redness, or edema. ENT: Dry mucous membranes, no stridor Cardiovascular: Regular rate and rhythm. No pulse deficits. Respiratory: Mild tachypnea with diminished breath sounds at bases, no retractions Abdomen/GI: Soft, non-tender Skin: Warm, dry MS/ Extremity: Pulses equal, no cyanosis. Neuro: Awake and alert, GCS 15 Vital Signs: 14:17 BP 122 / 71; Pulse 98; Resp 16 S; Temp 97.7(O); Pulse Ox 84% on R/A; Weight 44.45 kg jd3 (R); Height 5 ft. 2 in. (157.48 cm) (R); Pain 2/10; 14:18 Pulse Ox 95% on 3 lpm NC; jd3 14:38 BP 107 / 54; Pulse 91; Resp 13; Pulse Ox 92% on 3 lpm NC; ld1 15:56 BP 98 / 56; Pulse 89; Resp 18; Temp 97.9; Pulse Ox 92% on 4 lpm NC; sl2 16:30 BP 106 / 58; Pulse 81; Resp 22; Temp 97.8(O); Pulse Ox 96% on 4 lpm NC; sl2 18:38 BP 88 / 62; Pulse 80; Resp 18; Temp 97.9; Pulse Ox 96% on 4 lpm NC; sl2 18:59 BP 87 / 53; Pulse 85; Resp 18; Pulse Ox 96% on 4 lpm NC; sl2 20:30 BP 110 / 63; Pulse 80; Resp 17; Temp 98.4; Pulse Ox 93% on R/A; cc4 22:36 BP 97 / 57; Pulse 85; Resp 16; Temp 98.5; Pulse Ox 90% on 4 lpm NC; cc4 14:17 Body Mass Index 17.92 (44.45 kg, 157.48 cm) jd3 MDM: 13:49 Patient medically screened. rn 16:43 Differential diagnosis: pneumonia, Pneumothorax pulmonary edema, Pulmonary Embolism rn Sepsis Obstructed bronchus, malignant effusion, anemia, worsening cancer, PE. Data reviewed: vital signs, nurses notes, lab test result(s), EKG, radiologic studies, CT scan, plain films, and as a result, I will admit patient. Data interpreted: hospital monitor: rate is 81 beats/min, rhythm is normal sinus rhythm, regular, with no ectopy, Interpretation: normal rate, normal rhythm, Pulse oximetry: on room air is 84 %. Interpretation: hypoxia. Test interpretation: by ED physician or midlevel provider: ECG, plain radiologic studies, Chest x-ray with bilateral pleural effusions and interstitial prominence with possible pneumonia. Counseling: I had a detailed discussion with the patient and/or guardian regarding: the historical points, exam findings, and any diagnostic results supporting the discharge/admit diagnosis, lab results, radiology results, the need for further work-up and treatment in the hospital. Response to treatment: the patient's symptoms have mildly improved after treatment, and as a result, I will admit patient. Admission orders: after a detailed discussion of the patient's condition and case, the admit orders are written by me. ED course: Patient with known metastatic renal cell carcinoma to the lung, increased bilateral pleural effusions, possible superimposed pneumonia. 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 Will admit for antibiotics and further care with set up of home oxygen as all of her doctors are at this location.. 07/27 14:09 Order name: BMP; Complete Time: 15:30 rn 07/27 14:09 Order name: Blood Culture Adult (2) rn 07/27 14:09 Order name: CBC with Diff; Complete Time: 15:30 rn 07/27 14:09 Order name: Hepatic Function; Complete Time: 15:30 rn 07/27 14:09 Order name: NT PRO-BNP; Complete Time: 15:30 rn 07/27 14:09 Order name: PT-INR; Complete Time: 15:30 rn 07/27 13:47 Order name: CXR XRAY; Complete Time: 16:15 ll1 07/27 14:09 Order name: Ptt, Activated; Complete Time: 15:30 rn 07/27 14:09 Order name: Troponin (emerg Dept Use Only); Complete Time: 15:30 rn 07/27 20:17 Order name: CORONAVIRUS EDIN 07/27 21:13 Order name: SARS-COV-2 RT PCR EDIN 07/28 01:00 Order name: Procalcitonin EDIN 07/27 14:09 Order name: CT Chest For PE Angio; Complete Time: 16:15 rn 07/27 14:09 Order name: EKG; Complete Time: 14:09 rn 07/27 14:09 Order name: Cardiac monitoring; Complete Time: 14:22 rn 07/27 14:09 Order name: EKG - Nurse/Tech; Complete Time: 14:28 rn 07/27 14:09 Order name: IV Saline Lock; Complete Time: 15:55 rn 07/27 14:09 Order name: Labs collected and sent; Complete Time: 15:55 rn 07/27 14:09 Order name: O2 Per Protocol; Complete Time: 14:28 rn 07/27 14:09 Order name: O2 Sat Monitoring; Complete Time: 14:28 rn Administered Medications: 17:01 Drug: Zosyn (piperacillin-tazobactam) 3.375 grams Route: IVPB; Infused Over: 60 mins; sl2 Site: right forearm; 18:32 Follow up: Response: No adverse reaction; IV Status: Completed infusion; IV Intake: sl2 100ml 17:01 Drug: NS 0.9% 500 ml Route: IV; Rate: bolus; Site: right forearm; sl2 18:32 Follow up: Response: No adverse reaction; IV Status: Completed infusion; IV Intake: sl2 500ml Disposition Summary: 07/27/21 16:50 Hospitalization Ordered Hospitalization Status: Inpatient Admission rn Provider: Faisal Prater rn Location: Telemetry/MedSur (Inpatient) rn Condition: Stable rn Problem: new rn Symptoms: have improved rn Bed/Room Type: Standard rn Room Assignment: 427(07/27/21 22:00) cg Diagnosis - Pneumonia, unspecified organism rn - Malignant pleural effusion rn - Hypoxemia rn Forms: - Medication Reconciliation Form rn - SBAR form rn Signatures: Dispatcher [employer] Mitchell Arias MD MD rn Garcia, Cindy, RN RN cg Davies, Jonathon, RN RN jd3 Landell, Sophia RN RN sl2 Corrections: (The following items were deleted from the chart) 22:00 16:50 rn mleissa
--- NOTE | 2021-07-27 16:51 | ER ---
Nurse's Notes [facility] Name: Sangita Bunn Age: 75 yrs Sex: Female : 1945 Arrival Date: 07/27/2021 Time: 13:37 Bed 19 Private MD: Diagnosis: Pneumonia, unspecified organism;Malignant pleural effusion;Hypoxemia Presentation: 07/27 14:12 Chief complaint: Patient's son or daughter states: "she has cancer that has started to jd3 affect her lungs and last night her oxygen saturation went down to 78%. the doctor told us if it gets below 88% and stays below that to come to the ER.". Coronavirus screen: At this time, the client does not indicate any symptoms associated with coronavirus-19. Ebola Screen: Patient negative for fever greater than or equal to 101.5 degrees Fahrenheit, and additional compatible Ebola Virus Disease symptoms. Initial Sepsis Screen: Does the patient meet any 2 criteria? No. Patient's initial sepsis screen is negative. Does the patient have a suspected source of infection? No. Patient's initial sepsis screen is negative. Risk Assessment: Do you want to hurt yourself or someone else? Patient reports no desire to harm self or others. Onset of symptoms was July 26, 2021. 14:12 Method Of Arrival: Wheelchair jd3 14:12 Acuity: KRISTINA 3 jd3 Historical: - Allergies: 14:16 Morphine; jd3 14:16 Codeine; jd3 14:16 Cortisone; jd3 - PMHx: 14:16 Hypothyroidism; Lung tumors; jd3 14:16 Hypothyroidism; Lung tumors; sl2 - PSHx: 14:16 Appendectomy; Left kidney removed; jd3 14:16 Appendectomy; Left kidney removed; sl2 - Immunization history:: Adult Immunizations up to date, Client reports having NOT received the Covid vaccine. Flu vaccine is not up to date. Adult Immunizations up to date, Client reports receiving the 2nd dose of the Covid vaccine. - Social history:: Smoking status: Patient denies any tobacco usage or history of. Smoking status: Patient denies any tobacco usage or history of. - Family history:: not pertinent. - Hospitalizations: : No recent hospitalization is reported. Screenin:15 Abuse screen: Denies threats or abuse. Nutritional screening: No deficits noted. sl2 Tuberculosis screening: No symptoms or risk factors identified. Fall Risk None identified. Assessment: 15:00 General: Appears in no apparent distress. well developed, Behavior is calm, sl2 cooperative, Reports shortness of breath Denies fever, chills. 15:00 Pain: Denies pain. Neuro: No deficits noted. Cardiovascular: No deficits noted. sl2 Respiratory: Reports shortness of breath at rest Airway is patent Trachea midline Breath sounds are diminished. GI: No deficits noted. : No deficits noted. EENT: No deficits noted. Derm: No deficits noted. Musculoskeletal: No deficits noted. 16:38 Reassessment: Dr Martino present at bedside for patient reassessment, update on sl2 diagnostic findings and disposition. 18:39 Reassessment: Patient AAO X 3, shows no signs of acute distress, currently eating sl2 crackers and juice, tolerating meal well. 20:30 Reassessment: AA\\T\\Ox4; resting quietly in bed; denies any complaints; awaiting Covid-19 cc4 results for admission; VSS; NAD. Vital Signs: 14:17 BP 122 / 71; Pulse 98; Resp 16 S; Temp 97.7(O); Pulse Ox 84% on R/A; Weight 44.45 kg jd3 (R); Height 5 ft. 2 in. (157.48 cm) (R); Pain 2/10; 14:18 Pulse Ox 95% on 3 lpm NC; jd3 14:38 BP 107 / 54; Pulse 91; Resp 13; Pulse Ox 92% on 3 lpm NC; ld1 15:56 BP 98 / 56; Pulse 89; Resp 18; Temp 97.9; Pulse Ox 92% on 4 lpm NC; sl2 16:30 BP 106 / 58; Pulse 81; Resp 22; Temp 97.8(O); Pulse Ox 96% on 4 lpm NC; sl2 18:38 BP 88 / 62; Pulse 80; Resp 18; Temp 97.9; Pulse Ox 96% on 4 lpm NC; sl2 18:59 BP 87 / 53; Pulse 85; Resp 18; Pulse Ox 96% on 4 lpm NC; sl2 20:30 BP 110 / 63; Pulse 80; Resp 17; Temp 98.4; Pulse Ox 93% on R/A; cc4 22:36 BP 97 / 57; Pulse 85; Resp 16; Temp 98.5; Pulse Ox 90% on 4 lpm NC; cc4 14:17 Body Mass Index 17.92 (44.45 kg, 157.48 cm) jd3 ED Course: 13:37 Patient arrived in ED. mr 13:49 Mitchell Allen MD is Attending Physician. rn 13:52 Patient has correct armband on for positive identification. Placed in gown. Bed in low mh5 position. Call light in reach. Side rails up X 1. Adult w/ patient. Warm blanket given. sales route driver on. Pulse ox on. NIBP on. 14:14 Val Aguilar, EMORY is Primary Nurse. sl2 14:16 Triage completed. jd3 14:18 Arm band placed on. jd3 14:49 Initial lab(s) drawn, by ED staff, sent to lab. EKG done, by ED staff, reviewed by 5 Mitchell Allen MD. Inserted saline lock: 22 gauge in right forearm, using aseptic technique. Blood collected. 15:08 CT Chest For PE Angio In Process Unspecified. EDMS 15:34 CXR XRAY In Process Unspecified. EDMS 16:49 Faisal Prater DO is Hospitalizing Provider. rn 22:32 CORONAVIRUS Sent. cc4 22:36 No provider procedures requiring assistance completed. cc4 22:36 IV is patent, is intact, cc4 Administered Medications: 17:01 Drug: Zosyn (piperacillin-tazobactam) 3.375 grams Route: IVPB; Infused Over: 60 mins; sl2 Site: right forearm; 18:32 Follow up: Response: No adverse reaction; IV Status: Completed infusion; IV Intake: sl2 100ml 17:01 Drug: NS 0.9% 500 ml Route: IV; Rate: bolus; Site: right forearm; sl2 18:32 Follow up: Response: No adverse reaction; IV Status: Completed infusion; IV Intake: sl2 500ml Intake: 18:32 IV: 500ml; Total: 500ml. sl2 18:32 IV: 100ml; Total: 600ml. sl2 Outcome: 16:50 Decision to Hospitalize by Provider. rn 22:36 Admitted to Med/surg accompanied by tech, via stretcher, room 427, with oxygen, Report cc4 called to RN 22:36 Condition: stable 22:36 Instructed on the need for admit, Demonstrated understanding of instructions. 07/28 01:24 Patient left the ED. cc4 Signatures: Dispatcher [employer] ODINBarbara WaiteMitchell MD MD rn Martinez, Maria [facility] Harvinder Vo RN RN jd3 Gayle Mejía RN RN michel1 Karolina Ballesteros RN RN cc4 Val Aguilar RN RN sl2 Corrections: (The following items were deleted from the chart) 07/27 16:39 16:30 BP 91 / 56; Pulse 81bpm; Resp 22bpm; Pulse Ox 96% 4 lpm Nasal Cannula; Temp 97.8F sl2 Oral; sl2
--- NOTE | 2021-07-27 17:39 | P.HP ---
Certification for Inpatient Patient admitted to: Observation With expected LOS: <2 Midnights Patient will require the following post-hospital care: Other (set up home oxygen) Practitioner: I am a practitioner with admitting privileges, knowledge of patient current condition, hospital course, and medical plan of care. Services: Services provided to patient in accordance with Admission requirements found in Title 42 Section 412.3 of the Code of Federal Regulations Patient History Date of Service: 07/27/21 Primary Care Provider: Dr. Correa; Pulmonary-Dr. Moore; Oncology-Dr. Lewis Reason for admission: Hypoxia History of Present Illness: 75-year-old female with history of renal cell carcinoma with metastatic lung disease presented to the emergency room with increasing shortness of breath. Patient denied any significant fever, chest pain. Shortness of breath was noted with increased exertion. She has had poor appetite. She had been seen at [facility] by oncology. Oncology expected less than 7 months of life expectancy due to her metastatic disease. She is gone to a local oncologist for possible chemotherapy/immunotherapy. She understands that her metastatic disease is noncurative. She wishes to try this chemotherapy before considering hospice. She came to the ER for further evaluation. In the ER patient was found to be hypoxic. CT scan revealed bilateral pleural effusion with extensive metastatic disease changes. Patient admitted for further evaluation and treatment. Allergies codeine Adverse Reaction (Verified 07/08/21 12:08) Hives morphine Adverse Reaction (Verified 07/08/21 12:08) Shortness of breath Home medications list reviewed: Yes Home Medications: Cabozantinib S-Malate [Cabometyx] 40 mg PO DAILY 07/08/21 Escitalopram Oxalate [Lexapro] 10 mg PO DAILY 07/08/21 Levothyroxine Sodium [Levothyroxine] 75 mcg PO DAILY 07/08/21 Sodium Chloride Tab [Sodium Chloride*] 1 gm PO BID 07/08/21 Tramadol HCl [Ultram] 50 mg PO Q6HR PRN 07/08/21 Furosemide [Lasix] 20 mg PO DAILY #15 tablet 07/11/21 levoFLOXacin [Levaquin*] 250 mg PO DAILY #5 tab 07/11/21 predniSONE [Prednisone*] 20 mg PO DAILY #5 tab 07/11/21 - Past Medical/Surgical History -: Renal cell cancer -: Lung metastasis Past Surgical History: Reviewed- Non-Contributory Psychosocial/ Personal History: Patient lives at home - Family History Family History: Reviewed- Non-Contributory - Social History Smoking Status: Never smoker Alcohol use: No CD- Drugs: No Place of Residence: Home Review of Systems General: Weakness, As per HPI Eyes: Unremarkable ENT: Unremarkable Respiratory: Cough, Shortness of Breath, As per HPI Cardiovascular: Unremarkable Gastrointestinal: Unremarkable Genitourinary: Unremarkable Musculoskeletal: Unremarkable Integumentary: Unremarkable Neurological: As per HPI Lymphatics: Unremarkable Physical Examination - Studies Laboratory Data (last 24 hrs) 07/27/21 14:41: PT 12.5, INR 1.09, APTT 29.8 07/27/21 14:41: WBC 6.00, Hgb 11.0 L, Hct 32.0 L, Plt Count 414 H 07/27/21 14:41: Sodium 136, Potassium 4.2, BUN 23 H, Creatinine 1.15, Glucose 102, Total Bilirubin 0.3, AST 29, ALT 16, Alkaline Phosphatase 59 Assessment and Plan - Plan COVID: Pending CT scan: COMPARISON: Chest For Pe Angio dated 07/10/2021; Thorax Wo Con dated 07/08/2021; Thorax Wo Con dated 04/30/2016 FINDINGS: Chest Wall: Supraclavicular lymphadenopathy is noted but partially imaged. Lungs: Interlobular septal thickening and scattered ground-glass opacities. Consolidative dependent airspace disease. The right middle lobe bronchus is occluded. This resultant atelectasis of the right middle lobe. Pleura: Small moderate right and small left pleural effusion. Mediastinum/greg: Bulky mediastinal and hilar lymphadenopathy. For example, a prevascular lymph node measures 14 millimeters. Pulmonary arteries/Aorta: No filling defect identified. No aortic aneurysm. Heart: No significant pericardial effusion. Normal heart size. Upper abdomen: Incompletely characterize low-density liver lesions. Left nephrectomy. There are multiple hypervascular appearing upper abdominal and retroperitoneal lymph nodes. Bones: No acute abnormality. All CT scans are performed using dose optimization technique as appropriate and may include automated exposure control or mA/KV adjustment according to patient size. IMPRESSION: Negative for pulmonary embolism. Increasing bilateral interlobular septal thickening which may reflect lymphangitic spread of tumor. Again noted are bilateral pleural effusions and collapse of the right middle lobe due to right middle lobe bronchus occlusion. There also irregular bilateral airspace opacities that may reflect a combination of pneumonia or pneumonitis. Mediastinal, hilar, and upper abdominal lymphadenopathy consistent with metastatic disease, possibly metastatic renal cell carcinoma. Physical Exam: GENERAL: The patient is a well-developed, well-nourished, in no apparent distress. Alert and oriented x3. VITAL SIGNS: Reviewed HEENT: Neck supple. LUNGS: Clear to auscultation anteriorly. Mild crackles to the bases HEART: Regular rate and rhythm, no appreciable gallops, rubs, murmurs or extra heart sounds ABDOMEN: Soft, nontender, and nondistended. Positive bowel sounds. No hepato splenomegaly was noted. EXTREMITIES: Without any cyanosis, clubbing, rash, lesions or peripheral edema. NEUROLOGIC: The patient is oriented to person, place and time. Strength and sensation are grossly intact. Face is symmetric. Some muscle wasting to the upper and lower extremities SKIN: Normal color, turgor and temperature. No ulcerations or rashes noted. Impression: Dyspnea, hypoxia secondary to bilateral pleural effusions with CT scan showing collapse of right middle lobe due to right middle lobe bronchus occlusion with underlying metastatic lung cancer and mediastinal/hilar/upper abdominal lymphadenopathy consistent with metastatic disease with underlying renal cell carcinoma Depression with anxiety Chronic pain Hypothyroidism Plan: Dyspnea, hypoxia secondary to bilateral pleural effusions with CT scan showing collapse of right middle lobe due to right middle lobe bronchus occlusion with underlying metastatic lung cancer with underlying metastatic lung cancer and mediastinal/hilar/upper abdominal lymphadenopathy consistent with metastatic disease with underlying renal cell carcinoma: Patient will be admitted for further evaluation and treatment. We will start oxygen to maintain sats above 93%. Will cover with IV Zosyn due to her immunocompromised state. Will check procalcitonin. Will provide medicationalbuterol/Atrovent as needed. Social work to help arrange for home oxygen at discharge likely tomorrow. Case discussed at length with patient and daughter. Patient has metastatic lung disease. She has seen oncology at [facility]. They report [facility] gave her less than 7 months to live. She is gone to a local oncologist for possible palliative care. She is to start chemotherapy/immunotherapy soon. She is not ready for hospice at this time. Advanced directives addressed in detail. Patient is DO NOT RESUSCITATE. Will consult pulmonology for further recommendations. Monitor closely. Encourage oral intake. Depression with anxiety: Restart Lexapro Chronic pain: Restart hydrocodone Hypothyroidism: Restart levothyroxine Code Status: DO NOT RESUSCITATE DVT prophylaxis: Lovenox Advanced Care Planning-30 minutes: Home at discharge with home oxygen Discharge Plan: Home Plan to discharge in: 24 Hours - Advance Directives Does patient have a Living Will: No Does patient have a Durable POA for Healthcare: No - Code Status/Comfort Care Code Status Assessed: Yes (Patient is DNR) Time Spent Managing Pts Care (In Minutes): 55
[2021-07-27] MEDS ORDERED: NA CHLORIDE 0.9% 100 ML ONE (18:11)
[2021-07-27] MEDS ORDERED: PIPERACIL/TAZO 3.375 GM VIAL IV ONE (18:11)
[2021-07-27] MEDS ORDERED: NA CHLORIDE 0.9% 500 ML ONE (18:11)
[2021-07-27] MEDS ORDERED: ACETAMINOPHEN 500 MG TAB PO PRN (22:43)
[2021-07-27] MEDS ORDERED: ONDANSETRON 4 MG/2 ML VIAL IV PRN (22:43)
[2021-07-27] MEDS ORDERED: IPRATROPIUM BROM 0.5MG/2.5ML NEB PRN (22:43)
[2021-07-27] MEDS ORDERED: FAMOTIDINE 20 MG TAB PO SCH ×2 (22:43→23:00)
[2021-07-27] MEDS ORDERED: ALBUTEROL 2.5 MG/3 ML NEB SOL NEB PRN (22:43)
[2021-07-28] MEDS: PIPER TAZO 3.375 GM in NA CHLORIDE 0.9% 100 ML IV SCH ×2 (00:36→08:06)
[2021-07-28 01:51] VITALS: BMI 17.9
[2021-07-28] MEDS: HYDROCODONE/APAP 10/325 TAB PO PRN ×2 (04:21→10:36)
--- NOTE | 2021-07-28 06:06 | P.PN ---
Subjective Date of Service: 07/28/21 Primary Care Provider: Dr. Correa; Pulmonary-Dr. Moore; Oncology-Dr. Lewis Chief Complaint: Hypoxia Subjective: Doing well Physical Examination - Vital Signs Temperature: 97.4 F Blood Pressure: 90/60 Pulse: 79 Respirations: 16 Pulse Ox (%): 93 - Studies Laboratory Data (last 24 hrs) 07/27/21 14:41: PT 12.5, INR 1.09, APTT 29.8 07/27/21 14:41: WBC 6.00, Hgb 11.0 L, Hct 32.0 L, Plt Count 414 H 07/27/21 14:41: Sodium 136, Potassium 4.2, BUN 23 H, Creatinine 1.15, Glucose 102, Total Bilirubin 0.3, AST 29, ALT 16, Alkaline Phosphatase 59 Assessment & Plan Discharge Plan: Home Plan to discharge in: 24 Hours Physician Review Additional Text: COVID: negative CT scan: COMPARISON: Chest For Pe Angio dated 07/10/2021; Thorax Wo Con dated 07/08/2021; Thorax Wo Con dated 04/30/2016 FINDINGS: Chest Wall: Supraclavicular lymphadenopathy is noted but partially imaged. Lungs: Interlobular septal thickening and scattered ground-glass opacities. Consolidative dependent airspace disease. The right middle lobe bronchus is occluded. This resultant atelectasis of the right middle lobe. Pleura: Small moderate right and small left pleural effusion. Mediastinum/greg: Bulky mediastinal and hilar lymphadenopathy. For example, a prevascular lymph node measures 14 millimeters. Pulmonary arteries/Aorta: No filling defect identified. No aortic aneurysm. Heart: No significant pericardial effusion. Normal heart size. Upper abdomen: Incompletely characterize low-density liver lesions. Left nephrectomy. There are multiple hypervascular appearing upper abdominal and retroperitoneal lymph nodes. Bones: No acute abnormality. All CT scans are performed using dose optimization technique as appropriate and may include automated exposure control or mA/KV adjustment according to patient size. IMPRESSION: Negative for pulmonary embolism. Increasing bilateral interlobular septal thickening which may reflect lymphangitic spread of tumor. Again noted are bilateral pleural effusions and collapse of the right middle lobe due to right middle lobe bronchus occlusion. There also irregular bilateral airspace opacities that may reflect a combination of pneumonia or pneumonitis. Mediastinal, hilar, and upper abdominal lymphadenopathy consistent with metastatic disease, possibly metastatic renal cell carcinoma. Physical Exam: GENERAL: Patient stable at this time. VITAL SIGNS: Reviewed HEENT: Neck supple. LUNGS: Clear to auscultation anteriorly. Mild crackles to the bases. Patient currently on 4 L per nasal cannula HEART: Regular rate and rhythm, no appreciable gallops, rubs, murmurs or extra heart sounds ABDOMEN: Soft, nontender, and nondistended. Positive bowel sounds. No hepatosplenomegaly was noted. EXTREMITIES: Without any cyanosis, clubbing, rash, lesions or peripheral edema. NEUROLOGIC: No edema to the lower extremities. Patient oriented x3. SKIN: Normal color, turgor and temperature. No ulcerations or rashes noted. Impression: Dyspnea, hypoxia secondary to bilateral pleural effusions with CT scan showing collapse of right middle lobe due to right middle lobe bronchus occlusion with underlying metastatic lung cancer and mediastinal/hilar/upper abdominal l ymphadenopathy consistent with metastatic disease with underlying renal cell carcinoma Depression with anxiety Chronic pain Hypothyroidism Acute renal insufficiency Plan: Dyspnea, hypoxia secondary to bilateral pleural effusions with CT scan showing collapse of right middle lobe due to right middle lobe bronchus occlusion with underlying metastatic lung cancer with underlying metastatic lung cancer and mediastinal/hilar/upper abdominal lymphadenopathy consistent with metastatic disease with underlying renal cell carcinoma: Patient received some IV fluids. Will discontinue. Blood pressures have been running low at home and here. Will start midodrine 5 mg 3 times a day to maintain blood pressure. Patient desires to go home with home oxygen. Will arrange. Case discussed at length with patient and daughter yesterday. Patient has metastatic lung disease. She has seen oncology at [facility]. They report [facility] gave her less than 7 months to live. She is gone to a local oncologist for possible palliative care. She is to start chemotherapy/immunotherapy soon. She is not ready for hospice at this time. Advanced directives addressed in detail. Patient is DO NOT RESUSCITATE. Await further recommendations from pulmonology on plan of care. Will consider discharge as early as today or tomorrow. Depression with anxiety: Continue Lexapro Chronic pain: Continue hydrocodone Hypothyroidism: Continue levothyroxine Acute renal insufficiency: IV fluids provided with improvement Code Status: DO NOT RESUSCITATE DVT prophylaxis: Lovenox Advanced Care Planning-30 minutes: Home with home oxygen at discharge. Time Spent Managing Pts Care (In Minutes): 55
[2021-07-28 06:13] LABS: Absolute Lymphocytes (CBC) 0.8 K/uL (0.7-4.9); Basophils % 0.4 % (0-1.3); Hematocrit 29.6 % (36.0-45.0); Lymphocytes % 11.7 % (15.3-44.8); MPV 6.3 fL (7.6-11.3); RBC Red Blood Cell Count 2.95 M/uL (3.86-4.86)
[2021-07-28 06:21] LABS: Magnesium 2.5 mg/dL (1.8-2.4); Potassium 4.5 mmol/L (3.5-5.1)
[2021-07-28] MEDS ORDERED: LEVOTHYROXINE SOD 0.088 MG TAB PO SCH (06:30)
[2021-07-28] MEDS ORDERED: LEVOTHYROXINE SOD 0.075 MG TAB PO SCH (06:30)
[2021-07-28] MEDS ORDERED: NA CHLORIDE 0.9% 250 ML IV SCH (07:00)
[2021-07-28] MEDS ORDERED: NA CHLORIDE 0.9% 1,000 ML IV SCH (07:00)
--- NOTE | 2021-07-28 07:45 | RAD REPORT ---
EXAM DESCRIPTION: RAD - Chest Single View - 07/28/2021 6:02 am CLINICAL HISTORY: follow up pleural effusions, Lung Cancer COMPARISON: Chest Single View dated 07/27/2021; Chest Single View dated 07/11/2021; Chest Single Vie w dated 07/10/2021; Chest Single View dated 07/08/2021; Chest For Pe Angio dated 07/27/2021 FINDINGS: Lines: None. Lungs: Widespread bilateral airspace disease with similar right middle lobe atelectasis. Decreased lissette ng volumes noted. Pleural: Small right greater than left pleural effusions. Cardiac: The heart size is within normal limits. Bones: No acute fractures. Other: IMPRESSION: Bilateral interstitial and airspace disease, right middle lobe atelectasis, and small pl eural effusions with decreased lung volumes but otherwise no substantial interval change.
[2021-07-28] MEDS ORDERED: ESCITALOPRAM 20 MG TAB PO SCH (09:00)
[2021-07-28] MEDS ORDERED: SODIUM CHLORIDE 1 GM TAB PO SCH (09:00)
[2021-07-28] MEDS ORDERED: ENOXAPARIN 40 MG/0.4 ML SQ SCH (09:00)
[2021-07-28] MEDS ORDERED: ENOXAPARIN 30 MG/0.3 ML SQ SCH (09:00)
[2021-07-28 12:16] VITALS: TEMP 97.4
[2021-07-28 12:29] VITALS: O2SAT 90
--- NOTE | 2021-07-28 12:51 | P.CNS ---
Date of Consult: 07/28/21 Primary Care Provider: Dr. Correa; Pulmonary-Dr. Moore; Oncology-Dr. Lewis Chief Complaint: Hypoxia History of Present Illness: 75 years of age she has diffuse metastatic renal cancer followed up at [facility] currently scheduled to receive chemotherapy or immunotherapy here at the cancer center she came in weak shortness of breath was found to be hypoxic doing fine right now Allergies codeine Adverse Reaction (Verified 07/08/21 12:08) Hives cortisone Adverse Reaction (Verified 07/28/21 02:34) Hives morphine Adverse Reaction (Verified 07/08/21 12:08) Shortness of breath Home Medications: Escitalopram Oxalate [Lexapro] 10 mg PO DAILY 07/08/21 Levothyroxine Sodium [Levothyroxine] 75 mcg PO DAILY 07/08/21 Sodium Chloride Tab [Sodium Chloride*] 1 gm PO DAILY 07/08/21 Hydrocodone Bit/Acetaminophen [[place] 10-325 Tablet] 10 mg PO PRN PRN 07/28/21 - Past Medical/Surgical History -: Renal cell cancer -: Lung metastasis -: Hypothyroidism -: Chronic Pain -: Depression/Anxiety -: Left Nephrectomy -: Appendectomy Psychosocial/ Personal History: Patient lives at home - Social History Alcohol use: No CD- Drugs: No Place of Residence: Home Review of Systems General: Weakness Respiratory: Shortness of Breath Physical Examination Temp Pulse Resp BP Pulse Ox 97.4 F 79 16 90/60 93 07/28/21 12:15 07/28/21 12:15 07/28/21 12:15 07/28/21 12:15 07/28/21 12:15 General: Alert, In no apparent distress, Oriented x3 Neck: Supple Respiratory: Clear to auscultation bilaterally Cardiovascular: No edema, Normal S1 S2 Laboratory Data (last 24 hrs) 07/27/21 14:41: PT 12.5, INR 1.09, APTT 29.8 07/27/21 14:41: WBC 6.00, Hgb 11.0 L, Hct 32.0 L, Plt Count 414 H 07/27/21 14:41: Sodium 136, Potassium 4.2, BUN 23 H, Creatinine 1.15, Glucose 102, Total Bilirubin 0.3, AST 29, ALT 16, Alkaline Phosphatase 59 - Problems (1) Metastatic renal cell carcinoma to lung Current Visit: No Status: Acute Plan: Patient is 75 years of age admitted with metastatic renal cancer bilateral pleural effusion hypoxemia no evidence of pulmonary embolism blood pressure is slightly low rule out adrenal insufficiency cortisol level orthostatic blood pressure seeing oncology as an outpatient [facility] labs reviewed prognosis poor stable discharge today Qualifiers: Laterality: unspecified laterality Qualified Code(s): C78.00 - Secondary malignant neoplasm of unspecified lung; C64.9 - Malignant neoplasm of unspecified kidney, except renal pelvis
[2021-07-28] MEDS ORDERED: MIDODRINE HCL 5 MG TABLET PO SCH (14:00)
[2021-07-28 15:20] VITALS: BP 102/51
--- NOTE | 2021-07-28 15:30 | P.DS ---
Admission Date: 07/27/21 Discharge Date: 07/28/21 Primary Care Provider: Dr. Correa; Pulmonary-Dr. Moore; Oncology-Dr. Lewis Disposition: ROUTINE DISCHARGE Discharge Condition: GOOD Reason for Admission: Hypoxia Consultations: Pulmonary-Dr. Moore Procedures: COVID: negative CT scan: COMPARISON: Chest For Pe Angio dated 07/10/2021; Thorax Wo Con dated 07/08/2021; Thorax Wo Con dated 04/30/2016 FINDINGS: Chest Wall: Supraclavicular lymphadenopathy is noted but partially imaged. Lungs: Interlobular septal thickening and scattered ground-glass opacities. Consolidative dependent airspace disease. The right middle lobe bronchus is occluded. This resultant atelectasis of the right middle lobe. Pleura: Small moderate right and small left pleural effusion. Mediastinum/greg: Bulky mediastinal and hilar lymphadenopathy. For example, a prevascular lymph node measures 14 millimeters. Pulmonary arteries/Aorta: No filling defect identified. No aortic aneurysm. Heart: No significant pericardial effusion. Normal heart size. Upper abdomen: Incompletely characterize low-density liver lesions. Left nephrectomy. There are multiple hypervascular appearing upper abdominal and retroperitoneal lymph nodes. Bones: No acute abnormality. All CT scans are performed using dose optimization technique as appropriate and may include automated exposure control or mA/KV adjustment according to patient size. IMPRESSION: Negative for pulmonary embolism. Increasing bilateral interlobular septal thickening which may reflect lymphangitic spread of tumor. Again noted are bilateral pleural effusions and collapse of the right middle lobe due to right middle lobe bronchus occlusion. There also irregular bilateral airspace opacities that may reflect a combination of pneumonia or pneumonitis. Mediastinal, hilar, and upper abdominal lymphadenopathy consistent with metastatic disease, possibly metastatic renal cell carcinoma. Medical Problem List: Dyspnea, hypoxia secondary to bilateral pleural effusions with CT scan showing collapse of right middle lobe due to right middle lobe bronchus occlusion with underlying metastatic lung cancer and mediastinal/hilar/upper abdominal lymphadenopathy consistent with metastatic disease with underlying renal cell carcinoma Depression with anxiety Chronic pain Hypothyroidism Acute renal insufficiency Orthostatic hypotension Brief History of Present Illness: 75-year-old female with history of renal cell carcinoma with metastatic lung disease presented to the emergency room with increasing shortness of breath. Patient denied any significant fever, chest pain. Shortness of breath was noted with increased exertion. She has had poor appetite. She had been seen at [facility] by oncology. Oncology expected less than 7 months of life expectancy due to her metastatic disease. She is gone to a local oncologist for possible chemotherapy/immunotherapy. She understands that her metastatic disease is noncurative. She wishes to try this chemotherapy before considering hospice. She came to the ER for further evaluation. In the ER patient was found to be hypoxic. CT scan revealed bilateral pleural effusion with extensive metastatic disease changes. Patient admitted for further evaluation and treatment. Hospital Course: Patient presented with dyspnea, hypoxia secondary to bilateral pleural effusions with CT scan showing collapse of right middle lobe due to right middle lobe bronchus occlusion. Patient with underlying metastatic lung cancer from renal cell carcinoma. CT scan also showed mediastinal/hilar/upper abdominal lymphadenopathy consistent with metastatic disease. The patient was evaluated emergency room. Patient admitted for treatment. Patient remained stable on oxygen. No evidence of infection noted. Pulmonology was consulted. No pulmonology intervention was required. Case also discussed with oncology. Patient previously seen at [facility]. Her oncologist there reported poor prognosis. She has seen local oncology for possible chemotherapy/immunotherapy treatment. Patient understands her prognosis is poor. It appears on CT scan that her metastatic disease has worsened. She is not ready for hospice at this time. At discharge the patient will continue with home oxygen to maintain sats above 93%. Currently on 4 L. Patient will be provided albuterol inhaler 2 puffs 3 times a day as needed for shortness of breath. Recommend follow-up with pulmonology in 1 to 2 weeks to follow-up his hospitalization. Recommend follow- up with oncology within 1 week to further evaluate her care. Oncology will consider chemotherapy if her condition has improved. If her condition continues to decline need to consider hospice. Patient with depression and anxiety. At discharge patient will continue with Lexapro 10 mg daily daily. Patient with chronic pain. At discharge she will continue with hydrocodone 10/325 mg 1 pill 3 times a day as needed for pain. Patient with hypothyroidism. At discharge she will continue with levothyroxine 75 mcg daily. Patient had acute renal insufficiency. Patient given IV fluids with improvement. Blood pressures have remained low which she reports has been present for quite some time. Suspect underlying orthostatic hypotension. Patient given midodrine with improvement. At discharge patient will continue with midodrine 5 mg 1 pill 3 times a day to maintain blood pressure above 100 systolic. Recommend to hold midodrine if systolic greater than 110. Patient will continue with sodium tablet daily as well. Vital Signs/Physical Exam: Temp Pulse Resp BP Pulse Ox 97.4 F 82 16 102/51 L 93 07/28/21 12:15 07/28/21 15:19 07/28/21 12:15 07/28/21 15:19 07/28/21 12:15 General: Alert, In no apparent distress, Cooperative HEENT: Atraumatic Neck: Supple Respiratory: Other (currently on 4 L/,m) Cardiovascular: Normal pulses, Regular rate/rhythm Gastrointestinal: Normal bowel sounds, No ascites, No tenderness, No masses, No rebound, No guarding Musculoskeletal: No erythema, No tenderness, No warmth Integumentary: No tenderness/swelling Neurological: Normal speech, Normal strength at 5/5 x4 extr, Normal tone, Normal affect Laboratory Data at Discharge: WBC 6.60 K/uL (4.3-10.9) 07/28/21 05:55 Hgb 10.2 g/dL (12.0-15.0) L 07/28/21 05:55 Hct 29.6 % (36.0-45.0) L 07/28/21 05:55 Plt Count 381 K/uL (152-406) 07/28/21 05:55 PT 12.5 SECONDS (9.5-12.5) 07/27/21 14:41 INR 1.09 07/27/21 14:41 APTT 29.8 SECONDS (24.3-36.9) 07/27/21 14:41 Sodium 137 mmol/L (136-145) 07/28/21 05:55 Potassium 4.5 mmol/L (3.5-5.1) 07/28/21 05:55 BUN 18 mg/dL (7-18) 07/28/21 05:55 Creatinine 1.01 mg/dL (0.55-1.3) 07/28/21 05:55 Glucose 108 mg/dL (74-106) H 07/28/21 05:55 Magnesium 2.5 mg/dL (1.8-2.4) H 07/28/21 05:55 Total Bilirubin 0.3 mg/dL (0.2-1.0) 07/27/21 14:41 AST 29 U/L (15-37) 07/27/21 14:41 ALT 16 U/L (12-78) 07/27/21 14:41 Alkaline Phosphatase 59 U/L (45-117) 07/27/21 14:41 Home Medications: Escitalopram Oxalate [Lexapro] 10 mg PO DAILY 07/08/21 Levothyroxine Sodium [Levothyroxine] 75 mcg PO DAILY 07/08/21 Sodium Chloride Tab [Sodium Chloride*] 1 gm PO DAILY 07/08/21 Albuterol Inhaler [Ventolin Inhaler*] 2 puff IH Q6H PRN #1 [id number].[id number] 07/28/21 Hydrocodone Bit/Acetaminophen [[place] 10-325 Tablet] 10 mg PO PRN PRN 07/28/21 Midodrine HCl [Proamatine*] 5 mg PO TID #90 tab 07/28/21 New Medications: Midodrine HCl [Proamatine*] 5 mg PO TID #90 tab Albuterol Inhaler [Ventolin Inhaler*] 2 puff IH Q6H PRN #1 hfa.[email or web address] PRN Reason: Shortness Of Breath Physician Discharge Instructions: Patient presented with dyspnea, hypoxia secondary to bilateral pleural effusions with CT scan showing collapse of right middle lobe due to right middle lobe bronchus occlusion. Patient with underlying metastatic lung cancer from renal cell carcinoma. CT scan also showed mediastinal/hilar/upper abdominal lymphadenopathy consistent with metastatic disease. The patient was evaluated emergency room. Patient admitted for treatment. Patient remained stable on oxygen. No evidence of infection noted. Pulmonology was consulted. No pulmonology intervention was required. Case also discussed with oncology. Patient previously seen at [facility]. Her oncologist there reported poor prognosis. She has seen local oncology for possible chemotherapy/immunotherapy treatment. Patient understands her prognosis is poor. It appears on CT scan that her metastatic disease has worsened. She is not ready for hospice at this time. At discharge the patient will continue with home oxygen to maintain sats above 93%. Currently on 4 L. Patient will be provided albuterol inhaler 2 puffs 3 times a day as needed for shortness of breath. Recommend follow-up with pulmonology in 1 to 2 weeks to follow-up his hospitalization. Recommend follow- up with oncology within 1 week to further evaluate her care. Oncology will consider chemotherapy if her condition has improved. If her condition continues to decline need to consider hospice. Patient with depression and anxiety. At discharge patient will continue with Lexapro 10 mg daily daily. Patient with chronic pain. At discharge she will continue with hydrocodone 10/325 mg 1 pill 3 times a day as needed for pain. Patient with hypothyroidism. At discharge she will continue with levothyroxine 75 mcg daily. Patient had acute renal insufficiency. Patient given IV fluids with improvement. Blood pressures have remained low which she reports has been present for quite some time. Suspect underlying orthostatic hypotension. Patient given midodrine with improvement. At discharge patient will continue with midodrine 5 mg 1 pill 3 times a day to maintain blood pressure above 100 systolic. Recommend to hold midodrine if systolic greater than 110. Patient will continue with sodium tablet daily as well. Diet: AHA Activity: Fall precautions Followup: Myke Correa MD [Primary Care Provider] - Time spent managing pt's care (in minutes): 55
--- NOTE | 2021-07-29 14:25 | EKG ---
Test Date: 2021-07-27 Test Time: 14:32:31 Camera Repairman: ILENE MEASUREMENT RESULTS: Intervals: Rate: 85 OR: 138 QRSD: 94 QT: 428 QTc: 509 Howard: P: 75 OR: 138 QRS: 59 T: 82 INTERPRETIVE STATEMENTS: Normal sinus rhythm Possible Left atrial enlargement Nonspecific T wave abnormality Abnormal ECG Compared to ECG 07/08/2021 08:12:46 No significant changes Electronically Signed On 07-29-21 14:22:03 CDT by Fco Patricia
== END 2021-07-28 16:40 | disposition home or self-care (01) ==
LOC: ER 13:34 → ERHOLD 17:56 → INTOOBSV 17:56 → 4TH 22:44
PROVIDERS: ADMIT Family Medicine; ATTEND Family Medicine
DX: C64.9 Malignant neoplasm of unspecified kidney, except renal pelvis (principal); C78.01 Secondary malignant neoplasm of right lung; J91.0 Malignant pleural effusion; J96.01 Acute respiratory failure with hypoxia; R59.0 Localized enlarged lymph nodes; G89.29 Other chronic pain; F41.8 Other specified anxiety disorders; E03.9 Hypothyroidism, unspecified; I95.1 Orthostatic hypotension; N28.9 Disorder of kidney and ureter, unspecified; Z66 Do not resuscitate; Z90.5 Acquired absence of kidney; Z88.6 Allergy status to analgesic agent; Z88.8 Allergy status to other drugs, medicaments and biological substances; Z20.822 Contact with and (suspected) exposure to COVID-19
CPT/HCPCS: 96365; 93005; 87040 ×2; 85025 ×2; 80048 ×2; 36415 ×2; 83735; 85610; 82565; 80076; 85730; 84484; 82533; 84145; 83880; 71275; 71045 ×2; 94640; 99285; 96366; U0003; Q9967; J2543 ×3; J1650; J7040; J7030